=== PATIENT | male | born 1990 | race Caucasian/White ===

== ENCOUNTER 2019-06-02 10:47 | Emergency (ER) | payer OTHER ==
[~2019-06-02] VITALS: Ht 167.6 cm; Wt 59.0 kg
[2019-06-02 11:47] LABS: BASOPHILS 0.2 % (0.0-2.0); HEMATOCRIT 37.3 % (42.0-52.0); HEMOGLOBIN 12.4 gm/dL (14.0-18.0); LYMPHOCYTES 7.9 % (24.0-44.0); MCH 30.2 pg (26.0-34.0); MCHC 33.2 g/dL (28.0-37.0); MONOCYTES 8.9 % (1.0-8.0); PLATELET COUNT 221 thou/uL (150-400); RDW 13.3 % (10.5-14.5); WBC 14.4 thou/uL (4.0-11.0)
[2019-06-02 12:04] LABS: CALCIUM 9.2 mg/dL (8.5-10.1); CREATININE 0.9 mg/dL (0.7-1.3); POTASSIUM 3.4 mmol/L (3.5-5.1)
[2019-06-02 12:09] LABS: ALBUMIN 2.8 g/dL (3.4-5.0); TOTAL BILIRUBIN 0.9 mg/dL (<0.1-1.0); TOTAL PROTEIN 7.4 g/dL (6.4-8.2)
[2019-06-02] MEDS ORDERED: LEVAQUIN 750 M750 MG PO (15:36)
[2019-06-02 15:45] VITALS: BP 126/64
--- NOTE | 2019-06-03 07:44 | EKG ---
[place] [address] [facility] [address] [address] ELECTROCARDIOGRAM REPORT Name: JUMA MOE Room #: DEP [facility] [id number] Admission: 06/02/19 Attend Phys: Discharge: 06/02/19 Date of : [birth year] Report #: [id number] THIS REPORT FOR: //name// [facility] ED Test Date: 2019-06-02 Test Time: 12:10:11 Pat Name: JUMA MOE Department: Room: Gender: Director Personal: [facility] : 1990 Requested By: Shivam Costa Order Number: [id number] MD: Elmo Sheldon Measurements Intervals [place] Rate: 112 P: 59 TX: 177 QRS: 64 QRSD: 112 T: 15 QT: 331 QTc: 452 Interpretive Statements Sinus tachycardia RSR' in V1 or V2, probably normal variant No previous ECG available for comparison Electronically Signed On 06-03-2019 7:44:09 [employer] by Elom Sheldon [email or web address] <ELECTRONICALLY SIGNED> By: Elmo Sheldon MD, [facility] 06/03/19 0744 1210 1210 Elmo Sheldon MD, FACC /EPI
== END 2019-06-02 15:54 | disposition home or self-care (01) ==
LOC: ER 10:47
PROVIDERS: Emergency Medicine
DX: R05 Cough (principal); F17.210 Nicotine dependence, cigarettes, uncomplicated; Z87.01 Personal history of pneumonia (recurrent); Z88.1 Allergy status to other antibiotic agents

== ENCOUNTER 2021-01-30 07:47 | Inpatient (IN) | payer OTHER ==
[~2021-01-30] VITALS: Ht 167.6 cm; Wt 61.2 kg
--- NOTE | ~2021-01-30 | EMS ---
[facility] [address] [place] [address] EMS Patient Care Report Name: JUMA MOE Room #: 243-P ADM IN M.R.#: [id number] Admission: 01/30/21 Attend Phys: Abel Darden MD Discharge: Date of : [birth year] Report #: [id number] THIS REPORT FOR: //name// Report Transmitted: 02/09/2021 14:25 EMS Care Summary [place], [place]/[facility] Incident [id number] @ 01/30/2021 07:17 Incident Location [address] [place] [address] Patient JUMA MOE Male, 30 Years 1990 Patient Address [address] [place] [address] Patient History Pneumonia, Patient Allergies Amoxicillin, Patient Medications Other, Chief Complaint PNEUMONIA Disposition Transported No Lights/Soldier Dispatch Reason Sick Person Transported To [facility] Narrative DISPATCHED NON EMERGENCY ON A SICK. 30 Y/O MALE AMBULATING TOWARD AMBULANCE WITHOUT INCIDENT APPEARING IN NO IMMEDIATE DISTRESS. GCS 15 AND A/OX4. CONSENTS FOR [place] AND REQUESTS TRANSPORTATION TO [facility]. PT STATES HE WAS DIAGNOSED WITH PNEUMONIA. STATES THAT HE IS TAKING AN ANTIBIOTIC THAT HE [facility] [address] [place] [address] EMS Patient Care Report Name: JUMA MOE Room #: 243-P ADM IN Ray#: [id number] Admission: 01/30/21 Attend Phys: Abel Darden MD Discharge: Date of : 89 Report #: [id number] WAS PRESCRIBED BUT IS FEELING MORE WEAK. STATES HE IS HAVING SOME DIFFICULTY BREATHING. SPEAKING IN FULL SENTENCES. RESPIRATIONS APPEAR LABORED BUT NOT INCREASED. DENIES ANY OTHER MEDICAL COMPLAINTS. ASSISTED WITHOUT INCIDENT TO STRETCHER IN AMBULANCE. PLACED ON MONITOR AND V/S'S OBTAINED. H/R IS INCREASED AND OXYGEN SATURATION IS DECREASED. LUNG SOUNDS ARE CLEAR AND EQUAL BILATERALLY. PLACED ON OXYGEN AT 2 LPM. TRANSPORTED TO [facility]. REASSESSED ENROUTE. REMAINS GCS 15 AND ALERT. OXYGEN SATURATION IMPROVED. PT STATES HE IS FEELING BETTER. V/S'S MONITORED THROUGHOUT. REPORT CALLED TO HOSPITAL. MOVED WITHOUT INCIDENT TO ER HOSPITAL BED. PT CARE TRANSFERRED TO ED RN. Initial Vitals @07:33P: 110,SpO2: 97, @07:35P: 107,R: 18,BP: 129/80,Pain: 0/10,GCS: 15,Temp: 99.7F,SpO2: 96,Revised Trauma: 12,NM Suspected: false @07:28P: 112,R: 20,BP: 134/88,Pain: 0/10,GCS: 15,SpO2: 90,Revised Trauma: 12, Assessments @07:27MENTAL:Person Oriented,Time Oriented,Place Oriented,Event Oriented,SKIN:HEENT:Eyes: Left Pupil: 4-mm,Eyes: Right Pupil: 4-mm,Head/Face: No Abnormalities,Neck/Airway: No Abnormalities,LUNG SOUNDS:General: No Abnormalities,ABDOMEN:General: No Abnormalities,PELVIS//GI:EXTREMITIES:Capillary Refill: Right Upper: < 2 Sec,Capillary Refill: Right Lower: < 2 Sec,Capillary Refill: Left Lower: < 2 Sec,Capillary Refill: Left Upper: < 2 Sec,Left Arm: No Abnormalities,Right Arm: No Abnormalities,Left Leg: No Abnormalities,Right Leg: No Abnormalities,PULSE:Radial: 2+ Normal,NEURO:No Abnormalities,@07:35MENTAL:Place Oriented,Event Oriented,Time Oriented,Person Oriented,SKIN:HEENT:Head/Face: No Abnormalities,Neck/Airway: No Abnormalities,LUNG SOUNDS:General: No Abnormalities,ABDOMEN:General: No Abnormalities,PELVIS//GI:EXTREMITIES:Capillary Refill: Right Upper: < 2 Sec,Capillary Refill: Left Lower: < 2 Sec,Capillary Refill: Right Lower: < 2 Sec,Capillary Refill: Left Upper: < 2 Sec,Left Arm: No Abnormalities,Right Arm: No Abnormalities,Left Leg: No Abnormalities,Right Leg: No Abnormalities,PULSE:Radial: 2+ Normal,NEURO: Impression Shortness of breath Procedures @07:33Saline Lock 10cc (20 ga) Site: Forearm-LeftResponse: UnchangedSucceeded@07:303-Lead ECGResponse: UnchangedSucceeded@07:27ALS AssessmentResponse: UnchangedSucceeded@07:27StretcherResponse: Unchanged@07:29Oxygen FlowRate: 2 Device: Nasal Cannula (NC) Response: ImprovedSucceeded [facility] [address] [place] [address] EMS Patient Care Report Name: JUMA MOE Room #: 243-P ADM IN M.R.#: [id number] Admission: 01/30/21 Attend Phys: Abel Darden MD Discharge: Date of : 89 Report #: [id number] Timeline 07:15,Call Received 07:15,Dispatch Notified 07:17,Dispatched 07:18,En Route 07:25,On Scene 07:26,At Patient 07:27,ALS Assessment,Response: UnchangedSucceeded, 07:27,Stretcher,Response: Unchanged 07:28,BP: 134/88 M,PULSE: 112,RR: 20 R,SPO2: 90 Ox,ETCO2: ,BG: ,PAIN: 0,GCS: 15, 07:29,Oxygen FlowRate: 2 Device: Nasal Cannula (NC) Response: ImprovedSucceeded, 07:30,3-Lead ECG,Response: UnchangedSucceeded, 07:31,Depart Scene 07:33,Saline Lock 10cc 20 ga Site: Forearm-Left,Response: UnchangedSucceeded, 07:33,BP: / M,PULSE: 110,RR: R,SPO2: 97 Ox,ETCO2: ,BG: ,PAIN: ,GCS: , 07:35,BP: 129/80 M,PULSE: 107,RR: 18 R,SPO2: 96 Ox,ETCO2: ,BG: ,PAIN: 0,GCS: 15, 07:44,At Destination 08:03,Call Closed Disclaimer v1.1 Copyright 2020 [employer] This EMS Care Summary contains data elements from the applicable legal record (which may be displayed differently). It is designed to provide pertinent information for the following purposes: continuity of care, clinical quality, and state data reporting. The complete legal record is available to ED staff and administrators of the receiving hospital in [facility]'s Patient Tracker. All data is provided "as is."
[~2021-01-30 07:47] MED LIST: CEFDINIR300 MG PO; CEFPODOXIME PR200 M1 PO; LEVAQUIN 750 M750 MG PO; POTASSIUM20 PO; VENTOLIN HFA 1818 GM INH; ZPAK PO
[2021-01-30 07:48] VITALS: BP 114/73
[2021-01-30 08:56] LABS: ABSOLUTE NEUTROPHILS 7.7 thou/uL (1.4-8.2); BASOPHILS 0.5 % (0.0-2.0); EOSINOPHILS 0.1 % (0.0-3.0); HEMATOCRIT 24.9 % (42.0-52.0); HEMOGLOBIN 8.6 gm/dL (14.0-18.0); LYMPHOCYTES 12.3 % (24.0-44.0); MCH 30.2 pg (26.0-34.0); MCHC 34.5 g/dL (28.0-37.0); MCV 87.5 fL (80.0-100.0); MONOCYTES 8.8 % (1.0-8.0); PLATELET COUNT 211 thou/uL (150-400); POLYS 78.3 % (36.0-66.0); RBC 2.84 mil/uL (4.50-6.00); RDW 16.6 % (10.5-14.5); WBC 9.8 thou/uL (4.0-11.0)
[2021-01-30 09:03] LABS: CALCIUM 7.4 mg/dL (8.5-10.1); CREATININE 0.7 mg/dL (0.7-1.3); POTASSIUM 3.6 mmol/L (3.5-5.1)
[2021-01-30 09:09] LABS: ALBUMIN 1.1 g/dL (3.4-5.0); TOTAL BILIRUBIN 0.8 mg/dL (0.2-1.0); TOTAL PROTEIN 5.3 g/dL (6.4-8.2)
[2021-01-30 09:32] LABS: URINE BILIRUBIN 1+ (Negative); URINE BLOOD NEGATIVE (Negative); URINE CLARITY CLEAR; URINE GLUCOSE-RANDOM* NEGATIVE (Negative); URINE KETONES NEGATIVE (Negative); URINE LEUKOCYTES-REFLEX NEGATIVE (Negative); URINE NITRITE-REFLEX NEGATIVE (Negative); URINE PROTEIN (DIPSTICK) TRACE (Negative); URINE SPECIFIC GRAVITY 1.015 (1.005-1.035)
[2021-01-30 09:34] LABS: ICTOTEST (BILI CONFIRMATORY) Positive (Negative); URINE COLOR AMBER
[2021-01-30 10:37] LABS: AMP/METHAMP Negative (Negative); BARBITURATES Negative (Negative); BENZODIAZEPINES Negative (Negative); COCAINE Negative (Negative); METHADONE Negative (Negative); OPIATES Negative (Negative); PCP Negative (Negative)
[2021-01-30 10:58] VITALS: BP 121/70
--- NOTE | 2021-01-30 11:19 | NUR ---
TRIED TO CALL REPORT NO ANSWER
[2021-01-30 11:25] VITALS: BP 125/76
[2021-01-30 12:00] VITALS: BP 131/74
--- NOTE | 2021-01-30 14:26 | NUR ---
PT ARRIVED ROOM 453 AROUND 12:00 AT NOON FROM ER. REPORT GIVEN FROM ER NURSE ERIN. PATIENT IS A&O*4, 2L OXYGEN BY NASAL CANNULA. NS FLUID GOING AT 126ML/HR THROUGH LEFT FOREARM IV. EDUCATE PATIENT TO USE CALL LIGHT FOR ASSISTANCE BEFORE GET UP. REGULAR DIET. BG CHECKED. TELE IS ON. WILL KEEP MONITOR PATINET'S VS AND SAFETY.
[2021-01-30 15:12] VITALS: BP 133/72
[2021-01-30 20:53] VITALS: BP 127/78
--- NOTE | 2021-01-31 04:06 | NUR ---
ASSUMED CARE OF PT AT SHIFT CHANGE. PT IS AOX4 AND LETS NEEDS BE KNOWN. PT IS UP AD YAHAIRA. ASSESSMET CHARTED. PT RAN SR/ST ON TELE. IVF AND ABX TREATMENT CONTINUED. BREATHING TREATMENT STARTED. 2L O2 AMY NC CONTINUED. PT DENIED NAUSEA AND PAIN. PT SLEPT PART OF THE SHIFT. VSS AND NO S/S OF ACUTE DISTRESS. WILL CONTINUE TO MONITOR.
[2021-01-31 06:26] LABS: HEMATOCRIT 21.4 % (42.0-52.0); HEMOGLOBIN 7.2 gm/dL (14.0-18.0); MCH 29.9 pg (26.0-34.0); MCHC 33.6 g/dL (28.0-37.0); MCV 88.9 fL (80.0-100.0); RBC 2.4 mil/uL (4.50-6.00); RDW 16.7 % (10.5-14.5); WBC 7.5 thou/uL (4.0-11.0)
[2021-01-31 06:45] LABS: CALCIUM 7.3 mg/dL (8.5-10.1); CREATININE 0.7 mg/dL (0.7-1.3); POTASSIUM 3.7 mmol/L (3.5-5.1)
[2021-01-31 07:20] VITALS: BP 137/85
--- NOTE | 2021-01-31 14:10 | NUR ---
Received awake on bed. Due medications given as prescribed, able to swallow meds w/o difficulty. On O2 at 2lpm via nasal cannula; on breathing treatments. On telemetry; no complains and signs of chest pain, crushing sensation and heaviness. Assisted in ADLs. On regular diet, tolerating well; no nausea, no vomiting and no abdominal pain noted. On blood sugar monitoring, taken and recorded accordingly- verified with Dr Darden- may discontinue blood sugar monitoring. Still a/w stool sample for occult. Continent of bowel and bladder, able to use urinal and go to the toilet at times with standby assist. With NS at 126cc/hr, infusing well at L FA; With SL at R AC.
[2021-01-31 17:23] VITALS: BP 117/52
[2021-01-31 20:13] VITALS: BP 116/68
--- NOTE | 2021-02-01 03:45 | NUR ---
ASSUEMD CARE OF PT AT SHIFT CHANGE. PT IS SOX4 AND LETS NEEDS BE KNOWN. PT IS UP AD YAHAIRA. ASSESSMENT CHARTED. PT DENIED PAIN, NAUSEA OR SOA. 2L O2 VIA NC CONTINUED. IVF AND ABX TREATMENT CONTINUED. PT HAS A PRODUCTIVE COUGH. PT RAN SR/ST ON TELE. PT REMAINED AFEBRILE THIS SHIFT. PT SLEPT PART OF THE SHIFT. VSS AND NO S/S OF ACUTE DISTRESS. WILL CONTINUE TO MONITOR.
[2021-02-01 07:44] VITALS: BP 133/77
--- NOTE | 2021-02-01 14:21 | NUR ---
Received awake on bed. Due medications given as prescribed, able to swallow meds w/o difficulty. Vital signs stable. On telemetry; no complains and signs of chest pain, crushing sensation and heaviness. On O2 at 2lpm via nasal cannula; on regular breathing treatments. On regular diet- tolerating well; no nausea, no vomiting and no abdominal pain noted. Still a/w stool sample for occult- pt informed. Continent of bowel and bladder, able to use urinal and go to the toilet with standby assist. With SL at R AC; with NS at 126cc/hr, infusing well at L hand. Went down for CT scan this AM via wheelchair; back to room safely- a/w results. Pt seen and examined by Dr Null- for Dr Banuelos consult, answering service called- a/w rounds. Complained of pain, due PRN pain meds given as prescribed. To continue monitoring patient.
[2021-02-01 15:42] VITALS: BP 126/67
[2021-02-01 20:40] VITALS: BP 122/81
[2021-02-02] VITALS (9 sets, daily range): BP systolic 107–136; BP diastolic 65–81
[2021-02-02 05:35] LABS: HEMOGLOBIN 6.6 gm/dL (14.0-18.0)
[2021-02-02 05:38] LABS: MCH 30.2 pg (26.0-34.0); MCHC 33.9 g/dL (28.0-37.0); MCV 88.9 fL (80.0-100.0); RBC 2.2 mil/uL (4.50-6.00); RDW 16.8 % (10.5-14.5); WBC 9.4 thou/uL (4.0-11.0)
[2021-02-02 05:40] LABS: HEMATOCRIT 19.5 % (42.0-52.0)
[2021-02-02 05:51] LABS: CALCIUM 7.3 mg/dL (8.5-10.1); CREATININE 0.6 mg/dL (0.7-1.3); POTASSIUM 3.3 mmol/L (3.5-5.1)
--- NOTE | 2021-02-02 07:48 | NUR ---
ASSUMED CARE OF PT AT SHIFT CHANGE. PT IS AOX4 AND LETS NEEDS BEKNOWN. PT REPORTED SOME PAIN; PRNS PROVIDED. IVF AND ABX CONTINUED. 2L O2 VIA NC CONTINUED. ASSESSMENT CHARTED. CRITICAL HCT AND HGB CALLED; NO NEW ORDERS RECEIVED. ASSESSMENT CHARTED. PT SLEPT PART OF THE SHIFT. VSS AND NO S/S OF ACUTE DISTRESS. WILL CONTINUE TO MONITOR.
[2021-02-02 08:32] LABS: IgG 422
[2021-02-02 08:33] LABS: IgA 104
[2021-02-02 08:34] LABS: IgM 99
[2021-02-02 08:49] LABS: % SATURATION 16 % (20-39); IRON 20 ug/dL (65-175); TIBC 124 ug/dL (250-450)
[2021-02-02 09:17] LABS: FOLIC ACID 3.4 ng/mL (8.6-58.9)
--- NOTE | 2021-02-02 12:39 | NUR ---
PT IS A&O*4. 2L O2. TEMPTURE WAS 100F AND DECREASED TO 98.6F AFTER TYLENOL GIVEN. PATIENT COMPAIN NO PAIN. GIVE REPORT TO ICU NURSE JOSE ENRIQUE AT 12:25. WILL TRANSFER PT SAFETLY.
--- NOTE | 2021-02-02 14:56 | NUR ---
PT ADMITTED RELATED TO PNEUMONIA. CM REVIEWED CHART AND SPOKE WITH CARE TEAM. CM MET WITH PT AT BEDSIDE THIS DAY. PT APPEARED TO BE A&O X4. CM ROLE INTRODUCED. PT INDICATED HE RESIDES IN A HOUSE WITH HIS SPOUSE AND KIDS. PT INDICATED 4 STEPS TO ENTER AND NONE INSIDE. 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 PT INDICATED HIS MOTHER IN LAW WOULD BE A GOOD CONTACT FROM HIM AT . PT INDICATED HE IS PATIENT PAY AND HAS NO PCP. CM INDICATED THAT [facility] P[facility] CAN HE PROVIDED AND THAT [facility] WILL ASSESS PT FOR ELEGIBILITY FOR FINIANCIAL ASSISTANCE PROGRAMS. PT INDICATED NO O2 OR NEBS AT HOME HE STATED THAT HE HAS AN INHALER. PT WAS TRANSFERED TO ICU ROOM 238 THIS AFTERNOON. CM FOLLOWING REGARDING DC PLANNING.
[2021-02-02 18:06] LABS: HEPATITIS B SURFACE AG Negative (Negative); HEPATITIS C VIRUS AB <0.1 (0.0-0.9); HIV ANTIBODY Non Reactive (Non Reactive)
--- NOTE | 2021-02-02 18:32 | NUR ---
PT ARRIVED FROM [email or web address] ACCOMPANIED BY RN , BINDERY MACHINE OPERATOR AND PT FIANCE TO ICU ROOM 238. PT WAS TRANSFERRED TO POD ROOM 248 PT WAS GOING FOR SURGERY FOLLOWING DAY. PT ALERT AND ORIENTED X4 WITH UNDERLYING ANXIETY. PT ON 2L NC SPO2 ABOVE 95%. PT TACHYCARDIC. ONE UNIT PRBC TRANSFUSING. POTASSIUM AND MAGNESIUM BEING REPLACED. CONTINUE TO MONITOR.
[2021-02-02 21:24] LABS: HEMATOCRIT 22.1 % (42.0-52.0); HEMOGLOBIN 7.4 gm/dL (14.0-18.0); MCH 29.5 pg (26.0-34.0); MCHC 33.4 g/dL (28.0-37.0); MCV 88.3 fL (80.0-100.0); RBC 2.5 mil/uL (4.50-6.00); RDW 15.8 % (10.5-14.5); WBC 11.8 thou/uL (4.0-11.0)
[2021-02-02 21:32] LABS: CALCIUM 7.1 mg/dL (8.5-10.1); CREATININE 0.6 mg/dL (0.7-1.3); POTASSIUM 3.5 mmol/L (3.5-5.1)
[2021-02-02 22:55] LABS: ABSOLUTE RETIC COUNT 0.0853 10^6/uL; OBSERVED RETIC COUNT 3.34 % (0.6-2.6)
[2021-02-03] VITALS (22 sets, daily range): BP systolic 113–138; BP diastolic 58–102
[2021-02-03 05:33] LABS: ABSOLUTE NEUTROPHILS 9.4 thou/uL (1.4-8.2); BASOPHILS 0.4 % (0.0-2.0); EOSINOPHILS 0.2 % (0.0-3.0); HEMATOCRIT 22.3 % (42.0-52.0); HEMOGLOBIN 7.5 gm/dL (14.0-18.0); LYMPHOCYTES 9.3 % (24.0-44.0); MCH 29.6 pg (26.0-34.0); MCHC 33.5 g/dL (28.0-37.0); MCV 88.3 fL (80.0-100.0); MONOCYTES 4.8 % (1.0-8.0); PLATELET COUNT 203 thou/uL (150-400); POLYS 85.3 % (36.0-66.0); RBC 2.52 mil/uL (4.50-6.00); RDW 16.3 % (10.5-14.5); WBC 11.1 thou/uL (4.0-11.0)
[2021-02-03 05:46] LABS: ALBUMIN 0.9 g/dL (3.4-5.0); CALCIUM 7.4 mg/dL (8.5-10.1); CREATININE 0.5 mg/dL (0.7-1.3); POTASSIUM 3.5 mmol/L (3.5-5.1); TOTAL BILIRUBIN 0.5 mg/dL (0.2-1.0); TOTAL PROTEIN 4.7 g/dL (6.4-8.2)
[2021-02-03 06:06] LABS: APTT 34.5 Seconds (24.5-32.8); INR 1.05; PROTIME 11.4 Seconds (10.5-12.1)
[2021-02-03 12:12] LABS: % SATURATION 21 % (20-39); IRON 27 ug/dL (65-175); TIBC 130 ug/dL (250-450)
--- NOTE | 2021-02-03 13:45 | NUR ---
PATIENT COUGHING AND DEEP BREATHING WITH MINIMAL NURSING PROMPTING. IS COUGHING UP LARGE AMOUNTS OF SPUTUM. O2 SATS MAINTAINING ON 3L NC, HOWEVER, RR STILL VERY ELEVATED. PT'S FIANCE AT BEDSIDE AND UPDATED ON PT CONDITION. PT TO HAVE THORACOTOMY IN AM.
--- NOTE | 2021-02-03 14:00 | NUR ---
IV TEAM ATTEMPTED PICC LINE, UNABLE TO PLACE. 20G XL IV PLACED INSTEAD. PT TOLERATED WELL BUT DID NOT WISH TO HAVE ANOTHER ATTEMPT.
[2021-02-03 14:54] LABS: MAGNESIUM 1.8 mg/dL (1.8-2.4); POTASSIUM 3.5 mmol/L (3.5-5.1)
--- NOTE | 2021-02-03 15:00 | NUR ---
PATIENT AND AT BEDSIDE. PROGRESSING WELL TOWARDS GOAL OF DISCHARGE. AMBULATED WITH ASSISTANCE, HAS BEEN UP IN CHAIR MOST OF THE DAY. GALO/ARTERIAL LINE D/C THIS AM. HAS BEEN ABLE TO VOID. VSS.
--- NOTE | 2021-02-03 16:10 | NUR ---
PATIENT AND EDUCATED ON DISCHARGE INSTRUCTIONS. IVS D/C'D. ASSISTED PT WITH W/C TO CAR.
--- NOTE | 2021-02-03 16:57 | NUR ---
VAT CONSULTED FOR A PICC OR CL FOR THIS PT WHO WILL HAVE A VAT IN THE AM. ATTEMPTED TO THREAD A PICC ON THE RUE AND RIJ BUT NOT ABLE TO ADVANCE. A 20G 2.5 PIV PLACED IN HIS LOKESH WITH LABS DRAWN
[2021-02-04] VITALS (16 sets, daily range): BP systolic 99–136; BP diastolic 46–85
[2021-02-04 04:34] LABS: CALCIUM 7.5 mg/dL (8.5-10.1); CREATININE 0.6 mg/dL (0.7-1.3); POTASSIUM 3.8 mmol/L (3.5-5.1)
[2021-02-04 04:53] LABS: HEMATOCRIT 22.5 % (42.0-52.0); HEMOGLOBIN 7.6 gm/dL (14.0-18.0); MCH 30.2 pg (26.0-34.0); MCHC 33.8 g/dL (28.0-37.0); MCV 89.5 fL (80.0-100.0); PLATELET COUNT 203 thou/uL (150-400); RBC 2.52 mil/uL (4.50-6.00); RDW 16.5 % (10.5-14.5); WBC 9.4 thou/uL (4.0-11.0)
--- NOTE | 2021-02-04 06:19 | NUR ---
Pt has had uneventful night. Still remains very SOA with any movement, respiratory rate 30-43. O2 sat remains > 90% on 3 L canula. Pt has moments of anxiety which has been partially relieved with Ativan 1 mg IVP q 2-3 hours prn. Operative permit signed; pt voices understanding of procedure. States he is looking forward to feeling better.
--- NOTE | 2021-02-04 08:40 | NUR ---
ASSUMMED CARE OF THIS PATIENT AT 0700 FROM NIGHT NURSE, DAIN CARUSO. PATIENT NOTED TO HAVE RESP RATE IN THE 40 TO 50'S, AND HEART RATE UP TO 135 WITH AM XRAY OR ANY ACTIVITY. DR GRIFFIN AND DR ROBINS ARE ON THE UNIT AND AWARE OF THE SITUATION. REVIEWED XRAY. PATIENT TO OR AT 0835 VIA BED WITH O2 AT 6L/NC.
[2021-02-04 09:30] LABS: PLATELET ESTIMATE NORMAL
--- NOTE | 2021-02-04 11:20 | NUR ---
Chart review, discussed during los and unite rounds. He out of room for vats, he will come back on vent. Will cont following as needed for dc needs.
[2021-02-04 12:53] LABS: BE(vivo) -1.7 mmol/L (-2 to +3); HCO3 24.8 mmol/L (22.0-26.0); PCO2 52.2 mmHg (35.0-45.0); PO2 172.7 mmHg (80.0-100.0)
[2021-02-04 12:54] LABS: pH 7.295 (7.360-7.450)
--- NOTE | 2021-02-04 13:00 | NUR ---
PATIENT RETURNED DIRECTLY BACK FROM THE OR AT 1225, ACCOMPANIED BY THE OR TEAM. PLACED ON THE VENT AND MONITORS ATTACHED. MARK IN RT RADIAL ARTERY NOTED. PROPOFOL TITRATED FOR COMFORT AND HANDS NOTED TO MOVE TOWARDS ETT. WILL CONTINUE TO MONITOR. DR ROBINS AT BEDSIDE TO REVIEW PCXR.
--- NOTE | 2021-02-04 14:56 | NUR ---
ANOTHER ATTEMPT WAS MADE FOR THIS PATIENT BY THE VAT POST OP- WHILE PATIENT WAS INTUBATED AND SEDATED A PICC LINE WAS PLACED. THE LEFT UPPER ARM BRACHIAL VEIN WAS WIDLEY PATENT. A #5F TRIPLE LUMEN POWER PICC WAS PLACED AFTER A BEDSIDE TIMEOUT WAS COMPLETED. THE LINE WAS TRIMMED TO 45CM AND ADVANCED WITHOUT DIFFICULTY TO 2CM EXTERNAL. THE LINE WAS CONFIRMED USING 3CG AT 2 CM EXTERNAL. LINE WAS RELEASED FOR USE
[2021-02-04 16:04] LABS: HEMATOCRIT 21.8 % (42.0-52.0); HEMOGLOBIN 7.2 gm/dL (14.0-18.0); MCH 29.7 pg (26.0-34.0); MCHC 32.9 g/dL (28.0-37.0); MCV 90.4 fL (80.0-100.0); RBC 2.41 mil/uL (4.50-6.00); WBC 14.3 thou/uL (4.0-11.0)
--- NOTE | 2021-02-04 19:00 | NUR ---
PATIENT IS PROGRESSING SLOWLY TOWARDS OUTCOME GOALS HE REMAINS INTUBATED AND ON NEOSYNEPHRINE FOR BP AND PROPOFOL FOR VENT MANAGEMENT, LEFT UPPER ARM PICC INSERTED WITHOUT DIFF AND CVP IS 9-10. MAY GASTON, VISITED THIS EVENING AND UPDATED ON PATIENT'S CONDITION AND POC. QUESTIONS ANSWERED AND REASSURANCE GIVEN.
[2021-02-05 05:32] LABS: WBC 9.5 thou/uL (4.0-11.0)
[2021-02-05 05:37] LABS: MCH 30.6 pg (26.0-34.0); MCHC 34.1 g/dL (28.0-37.0); MCV 89.9 fL (80.0-100.0); RBC 1.94 mil/uL (4.50-6.00)
[2021-02-05 05:55] LABS: CALCIUM 7.3 mg/dL (8.5-10.1); CREATININE 0.4 mg/dL (0.7-1.3)
[2021-02-05 06:00] LABS: HEMATOCRIT 17.5 % (42.0-52.0); HEMOGLOBIN 5.9 gm/dL (14.0-18.0)
[2021-02-05 08:23] VITALS: BP 109/48
--- NOTE | 2021-02-05 09:00 | NUR ---
ASSUMMED CARE OF THIS PATIEN AT O700 FROM THE NIGHT NURSE SPENCER CARUSO. PATIENT REMAINS INTUBATED, AWAKE AND RESPONSIVE WITH FENTANYL AND PROPOFOL INFUSING. PROPOFOL WEANED FOR CPAP TRIAL. FIRST OF 2 UNITS OF BLOOD INFUSING. WILL CONTINUE TO MONITOR.
[2021-02-05 10:55] VITALS: BP 109/48; BP 125/60
--- NOTE | 2021-02-05 11:00 | NUR ---
UNIT OF BLOOD INFUSED. PATIENT PLACED ON CPAP TRIAL AT ASIYA 1000. REQUIRED FREQUENT ORAL AND ETT SUCTIONING FOR LARGE AMTS OF SECRETIONS. STRONG COUGH BUT ANXIOUS HE IS REQUESTING TO BE SUCTIONED EVERY 10 TO 15 MINUTES. CPAP TRIAL ABORTED AFTER ASIYA 45 MINUTES.
--- NOTE | 2021-02-05 11:38 | NUR ---
If unable to extubate with diet advance, recommend start vital AF 1.2 at 30ml/hr with goal rate of 55ml/hr
--- NOTE | 2021-02-05 12:00 | NUR ---
PRECEDEX ADDED FOR ANXIETY.
[2021-02-05 12:07] LABS: CD3 % 88.9 % (57.5-86.2); CD3 ABSOLUTE 1245 /uL (622-2402); CD4 % 57.6 % (30.8-58.5); CD4 ABSOLUTE 806 /uL (359-1519); CD4:CD8 1.88 (0.92-3.72); CD8 % 30.6 % (12.0-35.5); CD8 ABSOLUTE 428 /uL (109-897)
--- NOTE | 2021-02-05 12:26 | NUR ---
Chart review. discussed during los and unite rounds. On vent, getting blood r/t low hgb. Had vats yesterday. He awake, possible extubate. No anticipated dc over the weekend. Will cont following as needed for dc needs.
[2021-02-05 13:10] VITALS: BP 119/59; BP 126/65
--- NOTE | 2021-02-05 14:00 | NUR ---
LEFT THORACOTOMY WOUND PACKING CHANGED BY DR ROBINS AT THE BEDSIDE WITH PROPOFOL INCREASED FOR DRESSING REPACKING. PROPOFOL WEANED AND PATIENT PLACED ON CPAP TRIAL AT 1400
[2021-02-05 15:05] LABS: HCO3 24.4 mmol/L (22.0-26.0); PCO2 33.7 mmHg (35.0-45.0); PO2 119.4 mmHg (80.0-100.0); pH 7.478 (7.360-7.450); sO2 98.6 % (92.0-98.0)
--- NOTE | 2021-02-05 15:30 | NUR ---
ABG'S DRAWN AFTER 1 HR ON CPAP AND CALLED TO DR ROBINS. ORDERS RECEIVED AND PATIENT EXTUBATED TO 40% FACE SHIELD. TOLERATING WELL, COUGH AND DEEP BREATHING AND COACHED TO USE IS AND FLUTTER VALVE. WILL CONTINUE TO MONITOR.
[2021-02-05 16:24] VITALS: BP 119/59; BP 123/66; BP 126/65
--- NOTE | 2021-02-05 18:36 | NUR ---
PATIENT IS PROGRESSING TOWARDS OUTCOME GOAL HE IS EXTUBATED AND AFEBRILE. TAKING CLEAR LIQUIDS, AFTER BEDSIDE SWALLOW EVAL. SECOND UNIT OF PRBC'S INFUSED. IN AND SPOKE WITH DR GRIFFIN AND UNDATED ON POC. QUESTIONS ANSWERED AND REASSURANCE GIVEN
[2021-02-05 19:01] LABS: HEMATOCRIT 23.9 % (42.0-52.0)
[2021-02-05 19:03] LABS: HEMOGLOBIN 8.1 gm/dL (14.0-18.0)
[2021-02-06 05:21] LABS: CALCIUM 7.3 mg/dL (8.5-10.1); CREATININE 0.5 mg/dL (0.7-1.3); POTASSIUM 3.7 mmol/L (3.5-5.1)
[2021-02-06 05:23] LABS: HEMATOCRIT 25.1 % (42.0-52.0); HEMOGLOBIN 8.4 gm/dL (14.0-18.0); MCH 29.6 pg (26.0-34.0); MCHC 33.4 g/dL (28.0-37.0); MCV 88.7 fL (80.0-100.0); RBC 2.83 mil/uL (4.50-6.00); RDW 16.1 % (10.5-14.5); WBC 9.7 thou/uL (4.0-11.0)
[2021-02-06 08:07] LABS: IgG 427 mg/dL (603-1613)
--- NOTE | 2021-02-06 11:18 | NUR ---
PT WANTED THIS RN TO HAND HIM HIS PLASTIC BAG. PT SAID HE NEEDS TO SMELL THE LAVENDER PILLS IN THE BAG FOR HIS ANXIETY. THIS RN CHECKED THE BAG TO SEE WHAT THE PILLS LOOK LIKE. THE PILLS DID NOT HAVE ANY LABELS AND HE HAD A EMPTY 3 PACKET MEDICATION PACKAGE. SECURITY WAS CALLED. THE MEDICATIONS WERE SENT DOWN TO PHARMACY WITH SECURITY. 3 PACKS OF CIGARETTE WERE ALSO FOUND AND SEND DOWN TO SECURITY. PT WAS EDUCATED AND INFORMED THAT HE CANNOT HAVE OR CONSUME ANY OUT OF THE HOSPITAL MEDICATIONS OR HERBS OR OVER THE COUNTER PILLS WHILE HE IS IN THE HOSPITAL.
--- NOTE | 2021-02-06 11:29 | NUR ---
PT TRANSFERRED TO ROOM 243. REPORT WAS GIVEN TO ZULY HOLLIS. PT ALERT AND ORIENTED x4. PT ANXIOUS. PRECEDEX TURNED OFF PT WAS STILL ASKING FOR ANXIETY MEDICATIONS WHILE BEING ON THE PRECEDEX GTT. PT ON 5L NC, PT UPTO CHAIR THIS AM. IVF TURNED OFF. RIGHT RADIAL ART LINE OUT. LEST CHEST TUBE DRESSING CHANGED. BHAVESH MAS WAS NOTIFIED BY PT HIMSELF.
--- NOTE | 2021-02-06 18:11 | NUR ---
PT RESTING IN BED/CHAIR. UP TO WALK X1. CHEST TUBE IN PLACE WITH MINIMAL DRAINAGE INTO TUBE. DRESSINGS WERE SATURATED AND CHANGED. GALO DC. PIV X2 DC. PRECEDEX GTT INNIATED. OXYGEN HAS BEEN TITRATED TO 2L NC. PT CONTINUES TO BE TACHYPNEIC, HE HAS BEEN EDUCATED ON FATIGUE AND POSSIBILITY OF USING BIPAP AT NIGHT. PT PAIN NOT WELL CONTROLLED, CONTINUES TO HAVE ANXIETY. PT AND FIANCE HAVE BEEN THOUROUGHLY UPDATED AND EDUCATED ON PT CONDITION AND POC. PT SLOWLY PROGRESSING TOWARDS POC. ASSUMED CARE APPROX 1030 TODAY.
[2021-02-06 18:54] VITALS: BP 94/67
[2021-02-06 19:53] VITALS: BP 103/67
[2021-02-06 20:53] VITALS: BP 95/65
[2021-02-06 21:53] VITALS: BP 85/58
[2021-02-06 22:54] VITALS: BP 117/66
--- NOTE | 2021-02-06 23:48 | NUR ---
Pt highly anxious since beginning of shift, c/o of left back pain 04/09, asking for something for pain and/or anxiety every hour despite prn Fentanyl, Ativan, and Precedex given as ordered. Respiratory rate 40-52 since beginning of shift secondary to anxiety and pain. Pt intermittently drowsy, drops O2 sat to 88%; O2 increased to 5 L per canula.
[2021-02-06 23:53] VITALS: BP 123/63
[2021-02-07] VITALS (22 sets, daily range): BP systolic 102–129; BP diastolic 51–72
[2021-02-07 04:32] LABS: CALCIUM 7.4 mg/dL (8.5-10.1); CREATININE 0.5 mg/dL (0.7-1.3); POTASSIUM 3.1 mmol/L (3.5-5.1)
[2021-02-07 04:34] LABS: HEMATOCRIT 24.9 % (42.0-52.0); HEMOGLOBIN 8.3 gm/dL (14.0-18.0); MCH 29.7 pg (26.0-34.0); MCHC 33.3 g/dL (28.0-37.0); MCV 89.4 fL (80.0-100.0); RBC 2.78 mil/uL (4.50-6.00); RDW 16.6 % (10.5-14.5); WBC 8.1 thou/uL (4.0-11.0)
--- NOTE | 2021-02-07 11:28 | HC ---
[facility] [place] [address] CONSULTATION Name: JUMA MOE Room #: 243-P ADM IN M.R.#: [id number] Admission: 01/30/21 Attend Phys: Abel Darden MD Discharge: Date of : 89 Report #: [id number] THIS REPORT FOR: cc: FAM - No family physician/PCP FAM - No family physician/PCP Mykel Baneulos MD ~ DOC #: [id number] Mykel Banuelos MD DATE OF SERVICE: 02/02/2021 REFERRING PHYSICIAN: We are asked to see the patient by Dr. Null and Dr. Petit. HISTORY OF PRESENT ILLNESS: The patient is a 30-year-old with what appears to be a necrotizing pneumonia. The patient presents with sputum production and general malaise. The patient states he thought he may have had a fever at home, but never checked his temperature. The patient was admitted on 01/30/2021 with increased shortness of breath and weakness. Apparently, patient was seen on 01/25/2021 and diagnosed with pneumonia. It was recommended that he stay at the hospital at that time, but he elected to go home on antibiotics. Despite this treatment, he felt like he had gotten worse and returned for more definitive treatment. When the EMS was called room air sats were found to be in the low 90s. Since admission, the patient has had the CT scan that shows a smaller lenticular collection on the right and a larger complex basilar air-fluid collection along with the left lung pneumonia. The patient was also found to have significant anemia with today's hemoglobin of 6.6. White blood cell count not particularly elevated. Multiple serologies have been drawn and my understanding is that HIV is negative. The patient is also COVID negative. PAST MEDICAL HISTORY: The patient denies chronic disease. ALLERGIES: THE PATIENT STATES HE IS ALLERGIC TO AMOXICILLIN. MEDICATIONS: The patient was given (azithromycin) Z-IRVIN and Omnicef when seen in the Emergency Department earlier. SOCIAL HISTORY: The patient is a longtime smoker. 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 REVIEW OF SYSTEMS: GENERAL: The patient has sensation that he had been febrile at home, but had not taken his temperature. Also, reports generalized weakness and malaise. EYES: Denies vision change. HEENT: Denies headache, sinus problems, hearing problems. [facility] [address] [place] [address] CONSULTATION Name: JUMA MOE Room #: 243-P [facility] IN ..#: [id number] Admission: 01/30/21 Attend Phys: Abel Darden MD Discharge: Date of : 89 Report #: [id number] LUNGS: Complains of falls, sputum production and cough. CARDIAC: Denies angina. Denies palpitations. GASTROINTESTINAL: Denies nausea, vomiting, diarrhea or blood. GENITOURINARY: Denies urgency, frequency, blood. SKIN: Denies rash or infection. NEUROLOGIC: Denies motor or sensory problems. HEMATOLOGIC: Denies bruisability or bleeding. MUSCULOSKELETAL: Denies bone or joint pain. SKIN: Denies rash or infection. ENDOCRINE: Denies goiter, tremor. PHYSICAL EXAMINATION: GENERAL: The patient is sitting in bed, sallow complexion but animated. VITAL SIGNS: Temperature 37.0, heart rate 110, respiratory rate 20, blood pressure 129/81, O2 sat 96% on 2 liters. HEENT: No scleral icterus. No arcus. Oral exam reveals multiple caries. NECK: No cervical masses or bruits detected. CHEST: Reveals crackles bilaterally with decreased breath sounds at left base. HEART: Rhythm regular, tachycardic. No murmur. ABDOMEN: Soft. EXTREMITIES: No clubbing, cyanosis or edema. SKIN: No rash or infection. PSYCHIATRIC: Shows insight into problem and is a pleasant fellow. NEUROLOGIC: No motor or sensory dysfunction. MUSCULOSKELETAL: No bone or joint asymmetry or deformity. ASSESSMENT AND PLAN: The patient has what appears to be a complex empyema in the left base and a small lenticular collection in the right chest. I have recommended that we proceed to the operating room when it is safe to perform bronchoscopy and left video-assisted thoracoscopy with drainage was appropriate. If this is a more organized collection, then a thoracotomy with decortication may be necessary. Risks and details, options and alternatives, were discussed with the patient and may also be necessary later to have a catheter placed for the developing collection in the right chest. I have discussed the case with Dr. Petit who will organize a transfusion prior to surgery; it is not clear why the patient is so anemic. This clearly is a chronic issue and is either nutritional or related to some chronic occult blood loss or myelophthisic. In any event, multiple medical tests are being done to seek a systemic answer for this problem in order to help prepare for surgery we have taken the liberty of scheduling surgery for morning so that we can have time to assess the data as it returns. The patient understands all of this and agrees. Thank you for the consult. Mykel Banuelos MD [address] [address] CONSULTATION Name: JUMA MOE Room #: 243-P ADM IN M.R.#: [id number] Admission: 01/30/21 Attend Phys: Abel Darden MD Discharge: Date of : 89 Report #: [id number] KRUNAL/ROBERT <ELECTRONICALLY SIGNED> By: Mykel Banuelos MD 02/07/21 1128 1406 30 Mykel Banuelos MD /nt
--- NOTE | 2021-02-07 11:28 | O ---
[facility] [place] [address] OPERATIVE REPORT Name: JUMA MOE Room #: 243-P ADM IN M.R.#: [id number] Admission: 01/30/21 Attend Phys: Abel Darden MD Discharge: Date of : 89 Report #: [id number] THIS REPORT FOR: cc: FAM - No family physician/PCP FAM - No family physician/PCP Mykel Banuelos MD ~ DOC #: [id number] Mykel Banuelos MD DATE OF SERVICE: 02/04/2021 PREOPERATIVE DIAGNOSIS: Necrotizing pneumonia with possible empyema. POSTOPERATIVE DIAGNOSIS: Necrotizing pneumonia with possible empyema. OPERATION: Bronchoscopy, left video-assisted thoracoscopy, left thoracotomy with drainage of lung abscess. SURGEON: Mykel Banuelos MD. STAFF PHYSICAL THERAPY ASSISTANT: QUIQUE Morejon. ANESTHESIA: General. INDICATIONS: The patient is a 30-year-old with bilateral pneumonia. CT scan demonstrates a complex mass in the base of the left chest that is suspicious for necrotizing pneumonia with possible empyema. FINDINGS AND TECHNIQUE: After general anesthesia was established, flexible diagnostic bronchoscopy was performed. No specific endobronchial lesions were noted, but there was edema in the left lower lobe segmental bronchi, particularly in the superior segmental bronchus and there was pus or purulent sputum from those areas. After cleansing as much of the bronchial tree as we could and collecting samples for culture, a bronchial gerard was placed and its position checked with bronchoscopic guidance. The patient was positioned with left side up. The patient appeared to tolerate single-lung anesthesia. Exposure was made through typical video-assisted thoracoscopy ports. Through the lowest port and the anterior port, we were able to enter relatively free pleural space. The lung itself appeared edematous through the most posterior port, however, I could not enter the pleural space. The tract took us into necrotic lung and purulent collection. This was clearly a separate compartment from the rest of the pleural space. Rather than taking down this adhesed lung, I made a decision to perform a local [facility] [address] [place] [address] OPERATIVE REPORT Name: JUMA MOE Room #: [facility] IN .R.#: [id number] Admission: 01/30/21 Attend Phys: Abel Darden MD Discharge: Date of : 89 Report #: [id number] drainage procedure over the posterior port. First, however, chest tube was brought through the lowest port and it was secured in position and the anterior port was closed. Incision for the most posterior port was expanded to perform a posterior thoracotomy, chest was entered through this space and we entered into necrotic lung. In this way, we were able to drain lung abscess. Cultures were taken and sent for aerobic, anaerobic, fungal and AFB cultures. I explored the space as much as possible, but did not want to incur any hemorrhage. The area of the abscess was drained to the best of our ability at that time and then when this was completed, a Kerlix was soaked with Dakin solution and left in place as a wound packing. Overall, the patient tolerated this procedure nicely despite his chronically and acutely ill condition. The patient was taken back to the intensive care unit on the ventilator in satisfactory condition. All counts were reported as correct with the note that wound packing of Kerlix was left in place. Mykel Banuelos MD JF/AVRIL <ELECTRONICALLY SIGNED> By: Mykel Banuelos MD 02/07/21 1128 1245 1334 Mykel Banuelos MD /nt
--- NOTE | 2021-02-07 11:58 | NUR ---
ASSUMED CARE OF PT AT 0700 DR. ROBINS AT BEDSIDE AT 1115 AT REMOVED THE LEFT CHEST TUBE DR. HOWELL AT BEDSIDE AT 1155, SHE ORDERED ANXIETY MEDICATION AND WANTS HIM OFF PRECEDEX. IF HE IS STABLE AND NOT ANXIOUS ONCE OFF THE PRECEDEX THEN HE CAN MOVE TO CCU.
[2021-02-08] VITALS (14 sets, daily range): BP systolic 109–134; BP diastolic 61–86
[2021-02-08 05:23] LABS: CALCIUM 7.3 mg/dL (8.5-10.1); CREATININE 0.5 mg/dL (0.7-1.3); MAGNESIUM 1.7 mg/dL (1.8-2.4); PHOSPHORUS 2.5 mg/dL (2.6-4.7); POTASSIUM 3.3 mmol/L (3.5-5.1)
[2021-02-08 05:50] LABS: ABSOLUTE NEUTROPHILS 5.2 thou/uL (1.4-8.2); BASOPHILS 0.6 % (0.0-2.0); EOSINOPHILS 0.7 % (0.0-3.0); HEMATOCRIT 23.2 % (42.0-52.0); HEMOGLOBIN 7.8 gm/dL (14.0-18.0); LYMPHOCYTES 17.6 % (24.0-44.0); MCH 30.3 pg (26.0-34.0); MCHC 33.8 g/dL (28.0-37.0); MCV 89.7 fL (80.0-100.0); MONOCYTES 7.2 % (1.0-8.0); PLATELET COUNT 140 thou/uL (150-400); POLYS 73.9 % (36.0-66.0); RBC 2.58 mil/uL (4.50-6.00); RDW 16.5 % (10.5-14.5); WBC 7.1 thou/uL (4.0-11.0)
--- NOTE | 2021-02-08 06:00 | NUR ---
PT AWAKE AND ALERT. COOPERATIVE. REQUESTED FREQ PAIN MED TONIGHT. LEFT CHEST DRESSING OZZING SOME. EXCELLENT COUGH EFFORT. VOIDED 1500 CC THIS SHIFT. PROGRESSING TOWARD GOALS Can transfer to ccu today. no beds open at present. will cont to monitor
--- NOTE | 2021-02-08 07:50 | EKG ---
[address] [address] ELECTROCARDIOGRAM REPORT Name: JUMA MOE Room #: 243-P ADM IN M.R.#: [id number] Admission: 01/30/21 Attend Phys: Abel Darden MD Discharge: Date of : 92 Report #: [id number] [facility] Test Date: 2021-02-07 Test Time: 12:04:22 Pat Name: JUMA MOE Department: Room: 243 P Gender: M Director Of Maternity Services: VIRGILIO : 1990 Requested By: Dottie Bowman Order Number: [id number] MD: Nam Mae Measurements Intervals [place] Rate: 73 P: 33 [place]: 160 QRS: 40 QRSD: 93 T: 25 QT: 391 QTc: 431 Interpretive Statements Sinus rhythm Compared to ECG 01/25/2021 10:29:31 Sinus tachycardia no longer present Intraventricular conduction delay no longer present T-wave abnormality no longer present Electronically Signed On 02-08-2021 7:49:54 CDT by Nam Mae [email or web address] <ELECTRONICALLY SIGNED> By: Nam Mae MD, [facility] 02/08/21 0749 1204 1204 Nam Mae MD, [facility] /EPI
--- NOTE | 2021-02-08 11:10 | NUR ---
CT surgery team at bedside changing dressing. Fentanyl given before procedure, VSS, tolerated dressing change.
--- NOTE | 2021-02-08 13:10 | NUR ---
Pt very distressed about home situation re: his children. Pt states if he doesn't get out soon or find someone to watch his children, his fiancee will lose her job and will give the children to [employer]. Paged Dr. Petit to inquire about outpatient ABX via PICC.
--- NOTE | 2021-02-08 13:35 | NUR ---
Pt juan pablo at bedside - stated she was able to find someone to watch the children while she came to visit.
--- NOTE | 2021-02-08 15:46 | NUR ---
Pt requesting his "tea pills" that were confiscated earlier this admission. RN advised pt they were securely being held in pharmacy for when he gets discharged. RN educated pt on herbal supplements and OTC meds that while legal, are not always in the best interest of the pt - especially with multiple infections and puts them at risk for organ damage. Pt questioned RN on interactions with medications - RN advised pt to cease all OTC herbal supplements and cigarette use once discharged. Pt stated he understood, janiee at bedside agreed and encouraged pt to stop using the Kraton pills as well. Will follow up any further concerns.
--- NOTE | 2021-02-08 16:38 | NUR ---
Patient remains in ICU follow VAT's procedure with extensive bilateral pneumonia, with cavitary changes, mild bilateral effusions, Streptococcus pneumonia antigen positive. Chest tube removed by CV SWITCH FOREMAN today. Patient is listed as stable with tachypnea , respiratory rate in the 30s, remains weak, tolerating oral intake. Chest x-ray stable post Cx tube removal. Oxygen needs about the same, currently on 5 L of O2. Met with patient [id number]. Clarified next of kin contact. Patient reports Summer at [phone] (note patient currently has the phone) is his current . Jigna at [phone] as listed on the face sheet is his current Mother in Law and Mother to Summer. At present his children are being cared for by his ex- and her mother. Patient has been employed but unsure if he has his current job as he has only been with the [employer] for 3 months. 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 The patient has not spoken to his employer since. The patient is requesting discharge to outpatient as soon as possible to help with care for his children. Explained that patient needs to listen to his medical team to determine his ability to leave and function in that capacity as well. CM will work to seek services for help in the home upon discharge. Patient is hoping to discharge soon to an outpatient setting. CM will continue to follow for discharge needs.
--- NOTE | 2021-02-08 17:09 | NUR ---
Pt had witnessed/assisted fall/sit around 1000. Ambulating with yellow socks, gait belt, and RN assist pt sat aiming for commode before RN instruction and sat on floor instead. Pt is A/O x4, stated he "has to go right now", and otherwise steady when ambulating. Pt reports no injuries and none were witnessed, MD aware.
--- NOTE | 2021-02-08 18:19 | NUR ---
Per pt janie Robles and are allowed to have info, but "if anyone named Phoebe or Chuck calls she is banned". RN told pt she would note in chart. Margaret currently listed as primary contact.
[2021-02-09] VITALS (8 sets, daily range): BP systolic 102–141; BP diastolic 58–93
[2021-02-09 01:06] LABS: TETANUS ANTIBODY 0.13 IU/mL (<0.10)
[2021-02-09 05:43] LABS: HEMOGLOBIN 8.1 gm/dL (14.0-18.0); MCH 30.3 pg (26.0-34.0); MCHC 33.8 g/dL (28.0-37.0); MCV 89.6 fL (80.0-100.0); RBC 2.67 mil/uL (4.50-6.00); RDW 16.6 % (10.5-14.5); WBC 6.2 thou/uL (4.0-11.0)
--- NOTE | 2021-02-09 06:00 | NUR ---
PT AWAKE ALERT. VSS SINUS RHYTHM TO ST AFEBRILE. LEFT CHEST DRESSING DRY AND INTACT. EXCELLENT UO 1800 CC. CONT TO REQUEST PAIN AND ANXIETY MED FREQ. CAN TX TO CCU. NO BEDS AVAILABLE AT THIS TIME. PROGRESSING TOWARD GOALS
[2021-02-09 06:09] LABS: CALCIUM 7.6 mg/dL (8.5-10.1); CREATININE 0.4 mg/dL (0.7-1.3); POTASSIUM 3.1 mmol/L (3.5-5.1)
--- NOTE | 2021-02-09 11:39 | NUR ---
Reviewed case in 02-09-21 LOS and plan for continued ICU to possible step down care. CM explained to MD the patients desire to discharge home sooner than later. Attending MD to meet with patient and review current progress to discharge goals. CM will continue to follow.
--- NOTE | 2021-02-09 12:26 | NUR ---
PT REFUSING FOR HIS BED TO BE MADE. PHYSICAL THERAPIST ELOINA VERBALIZING CONCERN TO ZULY TORREZ THAT THE PATIENT SEEM LOOPY AND NOT WANTING TO WORK WITH PT THIS AFTERNOON. PT WANTED THE RN TO HAND HIM HIS PILLOW CASE. PT GAVE PERMISSION TO ZULY TORREZ TO LOOK INSIDE THE PILLOW CASE AND ZULY TORREZ FOUND 3 PACK OPITIMIZED PLANT MEDIATED PILLS. PT VERBALIZED HE TOOK TWO PILLS ALREADY. THIS SECURITY SCREENER TOOK THE PILL TO PHARMACY.PT BELONGINGS WERE STORED IN THE ICU STORE ROOM. PT WAS EDUCATED THAT IT IS NEITHER ALLOWED TO TAKE NOR HAVE FAMILY BRING ANY MEDICATIONS IN THE HOSPITAL. NOVELTY CHAIN MAKER VANESA HERNANDEZ WAS NOTIFIED ABOUT THIS INCIDENT. ZULY TORREZ NOTIFIED QUIQUE CANALES. THIS SECURITY SCREENER LEFT A MESSAGE TO MANUFACTURING MAINTENANCE TECHNICIAN MARCIN WHEATLEY.
[2021-02-09] MEDS ORDERED: [UNRECOGNIZED DRUG - OTHER] (14:25)
[2021-02-09 15:06] LABS: AMP/METHAMP Negative (Negative); BARBITURATES Negative (Negative); BENZODIAZEPINES Negative (Negative); COCAINE Negative (Negative); METHADONE Negative (Negative); OPIATES Negative (Negative); PCP Negative (Negative)
--- NOTE | 2021-02-09 17:56 | NUR ---
PT SAT UP IN CHAIR MOST OF THE DAY. FOUND WITH CBG TODAY. UNCLEAR IF FAMILY IS BRINGING IT TO HIM. DRUG SCREEN NEGATIVE. VSS EXCEPT TACHYCARDIA AT TIMES.
--- NOTE | 2021-02-09 18:06 | NUR ---
PT BHAVESH MERCEDES WAS INFORMED ABOUT THE INCIDENT OF FINDING PILLS TODAY. PT BHAVESH WAS INFORMED THAT IF THE RN OR OTHER STAFF MEMBERS FIND ANY MORE PILLS IN THE PATIENT ROOM THEN THE FAMILY MEMBERS WOULD NOT GET ANY VISITATION HOURS WITH THE PATIENT. DEMETRIA OSPINA VERBALIZED UNDERSTANDING ABOUT THE SITUATION AND DENIES BRINING ANY MEDS TO THE PATIENT.
--- NOTE | 2021-02-09 18:23 | NUR ---
PT REMAINS SEDATED ON VENT. VSS. TOLORATING TUBE FEEDING SMALL CPAP TRIAL TODAY BUT PT GOT TOO ANXIOUS.
--- NOTE | 2021-02-09 22:15 | NUR ---
Report gave to Coby Graves RN.
--- NOTE | 2021-02-09 22:40 | NUR ---
Pt left ICU with stable conditions. He is accomponied to room 207 by me. All belonging are sent to his room. His is awared of he being transfered.
--- NOTE | 2021-02-09 22:57 | NUR ---
PATIENTS CARE WAS ASSUMED AFER A TRANSFER FRO ICU. REPORT WAS GIVEN ,MEDS WERE CONTINUED. PATIENT REQUESTED PAIN MEDS AND SOMETHING FOR ANXIETY.
[2021-02-10 04:42] LABS: HEMATOCRIT 23.9 % (42.0-52.0); MCH 30.2 pg (26.0-34.0); MCHC 33.6 g/dL (28.0-37.0); MCV 89.8 fL (80.0-100.0); RBC 2.66 mil/uL (4.50-6.00); RDW 16.6 % (10.5-14.5); WBC 5.3 thou/uL (4.0-11.0)
[2021-02-10 04:46] LABS: CALCIUM 7.5 mg/dL (8.5-10.1); CREATININE 0.4 mg/dL (0.7-1.3); POTASSIUM 3.4 mmol/L (3.5-5.1)
[2021-02-10 05:00] VITALS: BP 137/91
--- NOTE | 2021-02-10 05:28 | NUR ---
PATIENTS CARES WERE ASSUMED AFTER A TRANSFER FROM ICU. PATIENTS MEDS WERE PASSED AFTER AN ASSESSMENT. PAIN MEDS AND ANXIETY MEDS WERE GIVEN. PATIENT DID FALL TO SLEEP AFTER. WILL CONTINUE TO DO ROUNDS. THE BED IS IN A LOW AND LOCKED POSITION.
--- NOTE | 2021-02-10 07:19 | HC ---
[facility] [place] [address] CONSULTATION Name: JUMA MOE Room #: 207-P ADM IN M.R.#: [id number] Admission: 01/30/21 Attend Phys: Abel Darden MD Discharge: Date of : 89 Report #: [id number] THIS REPORT FOR: cc: FAM - No family physician/PCP FAM - No family physician/PCP Tyron Banks MD ~ DOC #: [id number] cc: Abel Darden MD, Mykel Banuelos MD, QUIQUE Rankin (Jeremy), Ra Petit MD, MD Tyron Marr MD DATE OF SERVICE: 02/04/2021 REASON FOR CONSULTATION: Iron-deficiency anemia. HISTORY OF PRESENT ILLNESS: The patient is a very pleasant 30-year-old male from the [facility], who was admitted for what appears to be Streptococcal pneumonia with extensive involvement of most of the left, but also the right side. On admission, his hemoglobin was 8.6, dropped as low as 6.6; noted in December of 2020 was 10.5; noted in 05/2019, it had been 12.4. At the same time on admission when his hemoglobin was 8.6, the white count was 9.8, RDW 16.6, platelets 211. Normal differential. On admission in December, his AST was 91, it is now resolved. Total bilirubin 0.8, SGPT 38, creatinine was 0.7, albumin 1.1. Note that in December of 2020, it was 1.3, noted in 05/2019 it was 2.8. The patient reports not eating any red meat, has not been told he has been iron-deficient or anemic before. With regard to infections, he reports about 3 or 4 prior pneumonias. He reports several occasions of antibiotic usage when he was a young child under age 12, but none recently. Does not have recurrent sinus infections, does not have recurrent skin infections, does have poor dentition. Lives in a house with his , 2 children, age 2 and 7, I believe his mother and stepfather. None of them have unusual illnesses. There does not appear to be any family history of unusual infections. Nothing that would suggest cystic fibrosis in that degree. The patient is a smoker since about age 17 if not younger. The patient at this time has a cough. Has low-grade fever. Has some chest discomfort, no bowel changes. No blood in his urine or stool. They have not been black and tarry, is my understanding. He is very malnourished, as I mentioned, his albumin is extremely low on admit of 1.1. PAST MEDICAL HISTORY: Notable for the previous pneumonias. The recent pneumonia with some cavitation and probable empyema with plans for decortication perhaps later today after bronchoscopy. He is also a tobacco user. PHYSICAL EXAMINATION: GENERAL: The patient appears his stated age. He is a thin white male. Height is 5 feet 6 inches, 167.6 pounds. Weight 157 pounds noted on admit, was 138, [address] [address] CONSULTATION Name: JUMA MOE Room #: 207-P ADM IN .R.#: [id number] Admission: 01/30/21 Attend Phys: Abel Darden MD Discharge: Date of : 89 Report #: [id number] which is currently 71.2 kilograms, it was 62.6. VITAL SIGNS: He is afebrile, currently 98.1, blood pressure 127/73, respirations currently 46, pulse 112. HEENT: Face is symmetric. Poor dentition. LYMPHATICS: No enlarged lymph nodes in the supraclavicular, cervical, axillary region. ABDOMEN: Without masses. CHEST: Has rhonchi, left more than right. EXTREMITIES: Without clubbing, cyanosis. There is some edema. ASSESSMENT AND PLAN: 1. Iron-deficiency anemia, probably due to lack of red meat in his diet and poor diet. Noted his albumin was 1.1 on admission. Would suggest iron supplementation if acceptable to others. No evidence of bleeding or hemolysis at this time. Transfuse to keep hemoglobin above 7. 2. Severe protein-calorie malnutrition with albumin of 1.1 on admission. We will need to supplement as able to help patient heal better. 3. Probable Strep pneumonia antigen positive with infections, both left and right. No plans for bronchoscopy and probable decortication later today. 4. Poor dentition. We will need outpatient management. 5. Tobaccoism. Encouraged cessation. We will follow with you. MD ATTILA Alas/THOMAS/JHOAN <ELECTRONICALLY SIGNED> By: Tyron Banks MD 02/10/21 0719 0814 2104 Tyron Banks MD /nt
[2021-02-10 08:06] VITALS: BP 127/90
[2021-02-10 12:16] VITALS: BP 122/71
[2021-02-10 16:08] VITALS: BP 122/67
--- NOTE | 2021-02-10 17:24 | NUR ---
ASSUMED CARE SHIFT CHANGE. ASSESSMENTS CHARTED.MEDS GIVEN. VSS. C/O PAIN- MANAGED WITH PO IV PAIN MEDS. O2 SATS WNL ROOM AIR. CTS PLACED WOUND VAC ON PT THIS SHIFT, DRESSINGS CHANGED. WOUND VAC FUNCTIONING. PT REFUSED OT UNTIL TOMORROW. PT C/O ANXIETY, ANXIETY MEDS GIVEN CHARTED. UOP ADEQUATE. DENYING NEEDS CURRENTLY. CONT POC. WILL PASS ON REPORT TO ROBLES CARUSO.
[2021-02-10 20:00] VITALS: BP 125/75
[2021-02-11 04:45] VITALS: BP 125/83
--- NOTE | 2021-02-11 06:00 | NUR ---
PATIENTS CARES WERE ASSUMED AT SHIFT [facility]. PATIENT WAS ASSESSED AND MED WERE PASSED. PATIENT WS ROUNDED ON . I believed patient was ROUNDED PATIENT PUT OUT APPROX 150 FROM THE WOUND VAC. SUPPLIES IN THE ROOM TO CHANGE OUT THE WOUND VACS CANISTER. THE BED IS IN A LOW AND LOCKED POSITION
--- NOTE | 2021-02-11 06:00 | NUR ---
PATIENTS CARES WERE ASSUMED AT SHIFT [facility]GAN
[2021-02-11 09:24] VITALS: BP 131/77
[2021-02-11 12:14] VITALS: BP 111/75
--- NOTE | 2021-02-11 15:20 | NUR ---
Postdoctoral Scholar spoke with Murray (CTS NEWS PRODUCTION ASSISTANT) and he has made referral to [facility] for ana wound vac at [place]. He is hoping to replace vac dressing tomorrow and if the pt can be switched to po atb, then he can dc home with the wound vac. Postdoctoral Scholar spoke with Dany from [facility] and he has been working with Joseph garde manger for documentation. Script need on the [facility] Auth Form. A copy was placed on the front of the chart and Murray will sign it in the morning. Possible dc home soon. Cm to f/u with [facility] in the am for ana approval and delievery.
[2021-02-11 15:29] VITALS: BP 122/85
--- NOTE | 2021-02-11 17:39 | NUR ---
PT UP TO CHAIR TODAY AND CONTINUE TO MEDICATE FOR PAIN. PT TOLERATING PO WELL. WOUND VAC REMIANS IN PLACE. WILL CONTINUE TO ASSESS.
[2021-02-11 19:56] VITALS: BP 157/80
[2021-02-12 04:14] VITALS: BP 134/85
--- NOTE | 2021-02-12 04:58 | NUR ---
SLEPT PART OF SHIFT. TURNS SELF AND SITS ON SIDE OF BED TO VOID. WORKING ON GOALS AND PLAN OF CARE FOR NOC. PAIN MEDICATION AND ATIVAN GIVEN NEEDED WITH NOTED RELIEF. PROGRESSING TOWARDS DISCHARGE HOME WITH HOME HEALTH. CONTINUE TO ASSES.
[2021-02-12 06:07] LABS: HEMOGLOBIN 9.8 gm/dL (14.0-18.0); MCH 30.5 pg (26.0-34.0); MCHC 33.7 g/dL (28.0-37.0); MCV 90.4 fL (80.0-100.0); RBC 3.21 mil/uL (4.50-6.00); RDW 16.7 % (10.5-14.5); WBC 6.2 thou/uL (4.0-11.0)
[2021-02-12 06:16] LABS: CALCIUM 8.3 mg/dL (8.5-10.1); CREATININE 0.5 mg/dL (0.7-1.3); POTASSIUM 3.8 mmol/L (3.5-5.1)
[2021-02-12 07:56] VITALS: BP 114/74
--- NOTE | 2021-02-12 11:31 | NUR ---
pt off unit to ir.
[2021-02-12 12:25] VITALS: BP 125/72
--- NOTE | 2021-02-12 12:28 | NUR ---
PT RETURN FROM IR.
[2021-02-12 14:12] VITALS: BP 125/72
--- NOTE | 2021-02-12 14:25 | NUR ---
Outpt infusion has been approved for ana coverage per Dr. Darden. Referral faxed to ZULY Benjamin in the outpt infusion center. Pt to go to the ER on the weekends at 8:30am and to the infusion suite Monday to Monday at 2pm. His wound vac per [facility] has been approved thru their ana program and was delievered this afternoon. CTS here and placing the home vac. Supplies given to Cassidy in outpt infusion to have for next week's MWF dsg changes. Awaiting any final orders from ID for labs/line care. Pt had single lumen picc placed earlier today. Dc anticipated this evening once ID has seen him. Start of outpt care tomorrow as noted above. Detailed instructions provided in the pt's dc paperwork.
[2021-02-12] MEDS ORDERED: BUSPIRONE HCL5 MG PO (14:52)
[2021-02-12] MEDS ORDERED: FERREX 150 PLU1 EAC1 PO (14:52)
[2021-02-12] MEDS ORDERED: TRAMADOL 50 MG50 MG PO (14:52)
[2021-02-12] MEDS ORDERED: FOLIC ACID1 MG PO (14:53)
[2021-02-12] MEDS ORDERED: PROAIR HFA8.5 GM INH (14:54)
[2021-02-12] MEDS ORDERED: ROCEPHIN 11 GM/1001 IV (14:54)
[2021-02-12 15:03] VITALS: BP 107/45
== END 2021-02-12 15:43 | disposition home or self-care (01) | DRG 871 ==
LOC: ER 07:47 → EROBS 09:58 → 4W 11:33 → ICU 02-02 14:01 → 2N 02-09 22:47
PROVIDERS: Emergency Medicine; Internal Medicine; Internal Medicine Hematology & Oncology; Internal Medicine Pulmonary Disease; Nurse Practitioner Family; Physician Assistant; Specialist; Surgery Vascular Surgery; ADMIT Hospitalist; ATTEND Hospitalist
PROC: 0BJ08ZZ Inspection of Tracheobronchial Tree, Via Natural or Artificial Opening Endoscopic (ICD-10-PCS; principal; 2021-02-04)
PROC: 0BH17EZ Insertion of Endotracheal Airway into Trachea, Via Natural or Artificial Opening (ICD-10-PCS; principal; 2021-02-04)
PROC: 5A1945Z Respiratory Ventilation, 24-96 Consecutive Hours (ICD-10-PCS; principal; 2021-02-04)
PROC: 0W9B0ZZ Drainage of Left Pleural Cavity, Open Approach (ICD-10-PCS; principal; 2021-02-04)
PROC: 5A0945A Assistance with Respiratory Ventilation, 24-96 Consecutive Hours, High Flow/Velocity Cannula (ICD-10-PCS; 2021-02-05)
PROC: B5181ZA Fluoroscopy of Superior Vena Cava using Low Osmolar Contrast, Guidance (ICD-10-PCS; 2021-02-12)
PROC: 02PYX3Z Removal of Infusion Device from Great Vessel, External Approach (ICD-10-PCS; 2021-02-12)
PROC: 02HV33Z Insertion of Infusion Device into Superior Vena Cava, Percutaneous Approach (ICD-10-PCS; 2021-02-12)
DX: A41.9 Sepsis, unspecified organism (principal); E43 Unspecified severe protein-calorie malnutrition; J96.01 Acute respiratory failure with hypoxia; J85.1 Abscess of lung with pneumonia; A15.0 Tuberculosis of lung; T79.7XXA Traumatic subcutaneous emphysema, initial encounter; D50.9 Iron deficiency anemia, unspecified; F17.210 Nicotine dependence, cigarettes, uncomplicated; K02.9 Dental caries, unspecified; B95.3 Streptococcus pneumoniae as the cause of diseases classified elsewhere; E53.8 Deficiency of other specified B group vitamins; E87.6 Hypokalemia; X58.XXXA Exposure to other specified factors, initial encounter; Y93.89 Activity, other specified; Y92.89 Other specified places as the place of occurrence of the external cause; Y99.8 Other external cause status; Z88.1 Allergy status to other antibiotic agents; Z68.21 Body mass index [BMI] 21.0-21.9, adult; Z71.6 Tobacco abuse counseling; Z20.822 Contact with and (suspected) exposure to COVID-19
CPT/HCPCS: 10045; 10078; 10081; 27000; 50010; 50101; 50386; 50403; 50455; 50607; 50649; 51301; 52265; 53326; 54118; 56524; 56525; 56526; 56527; 56528; 57189; 58585; 62110; 62900; 65020; 65040; 65129; 83006; 85076

== ENCOUNTER → 2021-02-13 | Outpatient (CLI) | payer OTHER ==
[~2021-02-13] MED LIST changes: +BUSPIRONE HCL5 MG PO; +FERREX 150 PLU1 EAC1 PO; +FOLIC ACID1 MG PO; +PROAIR HFA8.5 GM INH; +ROCEPHIN 11 GM/1001 IV; +TRAMADOL 50 MG50 MG PO; +[UNRECOGNIZED DRUG - OTHER]
[2021-02-13 09:12] VITALS: BP 129/84
--- NOTE | 2021-02-13 09:16 | NUR ---
HERE FOR FIRST OUTPATIENT INFUSION OF CEFTRIAXONE POST DISMISSAL FROM THE HOSPITAL LATE AFTERNOON YESTERDAY. STATES DOING WELL. DENIES N/V/DIARRHEA, FEVER/CHILLS. STATES SLEPT OK, DENIES PAIN. STATES EATING WELL. WOUND VAC DRESSING IS INTACT, PUMP ON, BUBBLES/FLUID MOVING THROUGH TUBING. PICC DRESSING INTACT, PICC WITH BRISK BLOOD RETURN. CEFTRIAXONE GIVEN WITHOUT INCIDENT. MUCH REASSURANCE GIVEN TO PATIENT WITH REVIEW OF INSTRUCTIONS, SCHEDULE, WHAT TO EXPECT. PT IN GOOD SPIRITS THIS MORNING, PLEASANT, EAGER TO LEARN. DISMISSED IN STABLE CONDITION. SCHEDULED TO RETURN AGAIN IN THE MORNING.
== END ==
LOC: OPONC 12:00
PROVIDERS: ATTEND Specialist
DX: J85.1 Abscess of lung with pneumonia (principal)
CPT/HCPCS: 95000

== ENCOUNTER → 2021-02-14 | Outpatient (CLI) | payer OTHER ==
[2021-02-14 14:29] VITALS: BP 134/83
== END ==
LOC: OPONC 12:00
PROVIDERS: ATTEND Specialist
DX: J85.1 Abscess of lung with pneumonia (principal)
CPT/HCPCS: 95000

== ENCOUNTER → 2021-02-15 | Outpatient (CLI) | payer OTHER ==
[2021-02-15 15:15] VITALS: BP 108/66
--- NOTE | 2021-02-15 17:03 | NUR ---
ARRIVED AMBULATORY FOR ANTIBIOTIC THERAPY AND WOUND VAC DRESSING CHANGE BY DOM FROM 'S OFFICE. PAIN SCALE PRIOR TO WOUND VAC DRESSING CHANGE WAS A "2" THEN INCREASED TO A "7" AFTER IT WAS CHANGED. PRIOR TO DISCHARGE PATIENT RATES PAIN AT A 4. TOLERATED INFUSION WITHOUT DIFFICULTY. TEACHING REVIEWED ON MEDICATION, CARE OF PICC AND PAIN MANAGEMENT. DENIES DIARRHEA, CHILLS OR NAUSEA. DC AMBULATORY IN STABLE CONDITION. TO RETURN TOMORROW FOR NEXT ANTIBIOTIC TREATMENT.
== END ==
LOC: OPONC 12:00
PROVIDERS: ATTEND Specialist
DX: J85.1 Abscess of lung with pneumonia (principal)
CPT/HCPCS: 95000

== ENCOUNTER → 2021-02-16 | Outpatient (CLI) | payer OTHER ==
[2021-02-16 16:56] VITALS: BP 113/75
--- NOTE | 2021-02-16 17:35 | NUR ---
ARRIVED LATE TO CLINIC BECAUSE OF FAMILY EMERGENCY. IV CEFTRIAXONE GIVEN WITHOUT ADVERSE REACTION. WOUND VAC INTACT AND DRAINING. PICC LINE INTACT. DISCHARGE AMBULATORY IN STABLE CONDITION TO HOME
== END ==
LOC: OPONC 12:00
PROVIDERS: ATTEND Specialist
DX: J85.1 Abscess of lung with pneumonia (principal)
CPT/HCPCS: 95000

== ENCOUNTER → 2021-02-17 | Outpatient (CLI) | payer OTHER ==
[2021-02-17 15:41] LABS: HEMATOCRIT 30.9 % (42.0-52.0); HEMOGLOBIN 10.2 gm/dL (14.0-18.0); MCH 29.8 pg (26.0-34.0); MCHC 33.1 g/dL (28.0-37.0); MCV 90.2 fL (80.0-100.0); RBC 3.42 mil/uL (4.50-6.00); RDW 16.4 % (10.5-14.5); WBC 7.7 thou/uL (4.0-11.0)
[2021-02-17 15:53] LABS: ALBUMIN 2.5 g/dL (3.4-5.0); CALCIUM 8.9 mg/dL (8.5-10.1); CREATININE 0.7 mg/dL (0.7-1.3); TOTAL BILIRUBIN 0.4 mg/dL (0.2-1.0); TOTAL PROTEIN 6.8 g/dL (6.4-8.2)
[2021-02-17 15:57] VITALS: BP 111/71
--- NOTE | 2021-02-17 16:02 | NUR ---
ARRIVED AMBULATORY FOR ANTIBIOTIC THERAPY AND WOUND VAC DRESSING CHANGE. PATIENT SEEN BY DOM. DRESSING CHANGE DONE. PATIENT TO GET XRAY TOMORROW. REQUITSITION GIVEN TO PATIENT BY DOM. PATIENT TO BRING BOX OF WOUND VAC SUPPLIES TO OUTPATIENT AREA THAT WERE SENT TO HIS HOUSE. LABS DRAWN TODAY FROM PICC LINE. TOLERATED INFUSION WITHOUT ADVERSE REACTION. DC TO HOME. TO RETURN TOMORROW FOR NEXT TREATMENT.
== END ==
LOC: OPONC 12:00
PROVIDERS: ATTEND Specialist
DX: J85.1 Abscess of lung with pneumonia (principal)
CPT/HCPCS: 95000

== ENCOUNTER → 2021-02-18 | Outpatient (CLI) | payer OTHER ==
[2021-02-18 15:00] VITALS: BP 103/81
--- NOTE | 2021-02-18 15:37 | NUR ---
PT HERE FOR IV CETRIAXONE. STOPPED AT RADIOLOGY BEFORE INFUSION FOR CHEST X-RAY. PT TOLERATED INFUSION WITH NO COMPLICATIONS. INSTRUCTED TO FOLLOW UP WITH TRIM MASTER OPERATOR. ATTEMPTED TO CALL WHILE HERE WITH NO RESPONSE. STATES HE WILL TRY AGAIN WHEN HE GETS HOME. TO RETURN TOMORROW-DRESSING DUE TO BE CHANGED. LEFT IN STABLE CONDITION.
== END ==
LOC: OPONC 14:36
PROVIDERS: ATTEND Specialist
DX: J85.1 Abscess of lung with pneumonia (principal)
CPT/HCPCS: 95000

== ENCOUNTER → 2021-02-19 | Outpatient (CLI) | payer OTHER ==
[2021-02-19 12:15] VITALS: BP 102/81
--- NOTE | 2021-02-19 15:05 | NUR ---
PT HERE FOR IV CEFTRIAXONE. TOLERATED TREATMENT WITH NO COMPLICATIONS. DR. GRIFFIN TO SEE PT IN CLINIC ON MONDAY. PICC DRESSING CHANGED. LINE REMAINS INTACT, FLUSHES AND ASPIRATES EASILY. DOM SAW PT TO DO WOUND VAC DRESSING CHANGE. LEFT MESSAGE WITH PULMONOLOGY ANSWERING SERVICE TO CALL PT FOR HIS FOLLOW UP APPOINTMENT. PT SCHEDULED IN THE ED FOR THE WEEKEND AND STATES HE UNDERSTANDS THE PROCESS. LEFT UNIT IN STABLE CONDITION.
== END ==
LOC: OPONC 12:05
PROVIDERS: ATTEND Specialist
DX: J85.1 Abscess of lung with pneumonia (principal)
CPT/HCPCS: 95000

== ENCOUNTER → 2021-02-20 | Outpatient (CLI) | payer OTHER ==
[2021-02-20 16:05] VITALS: BP 116/71
[2021-02-20 16:23] VITALS: BP 116/71
== END ==
LOC: OPONC 12:00
PROVIDERS: ATTEND Specialist
DX: J85.1 Abscess of lung with pneumonia (principal)
CPT/HCPCS: 95000

== ENCOUNTER → 2021-02-22 | Outpatient (CLI) | payer OTHER ==
[2021-02-22 17:30] VITALS: BP 129/82
--- NOTE | 2021-02-22 17:39 | NUR ---
ARRIVED AMBULATORY TO SEE DOM ARORA AND ANTIBIOTIC TREATMENT. PACING. EMOTIONAL. STATES GOING "THROUGH IT" WOULD NOT ELABORATE. EMOTIONAL SUPPORT GIVEN. TACHYCARDIC AT 133. DENIES NAUSEA, DIARHHEA OR CHILLS. TOLERATED IV INFUSION WITHOUT ADVERSE REACTION. PICC FLUSHED EASILY. PATIENT STATES HE HAS NOT RECEIVED A CALL FROM MUD TRUCKER. SPOKE WITH PACKAGE SEALER MACHINE AUTOMATION TENDER WHO WILL CONTACT OFFICE TO CALL PATIENT FOR APPOINTMENT. DR. GRIFFIN HERE TO ROUND ON PATIENT. PATIENT IMPROVING. WANTS HIM TO FIND PCP TO [facility] AND PATIENT TO GET ON ANTIANXIETY MEDICATIONS. DOM HERE TO DO WOUND VAC DRESSING CHANGE. TOLERATED WELL. PATIENT DC AMBULATORY IN STABLE CONDITION. STATES HE FEELS BETTER AFTER HEARING OF HIS IMPROVEMENT TODAY. WILL CALL PATIENT WITH ANY FURTHER INFORMATION ABOUT MEDS/PCP. TO RETURN TOMORROW FOR NEXT TREATMENT. CALL PLACED TO HOSPITAL LIST, DR. BOURGEOIS REGARDING DISCHARGE MEDS. RILEY FROM CASE MANAGEMENT OFFERED GUIDANCE WHICH WAS COMMUNICATED TO PATIENT. EXPLAINED [facility] [employer] AND INSTRUCTED TO CALL [phone] FOR AN APPOINTMENT FOR A PCP. PT TOLD THIS COULD TAKE UP TO 2 MONTHS TO GET INTO, IN THE MEAN TIME HE IS TO USE THE WALK IN CLINIC FOR IMMEDIATE NEEDS. PATIENT INSTRUCTED THAT HE WILL NEED AND I.D., PROOF OF ADDRESS AND $25.00. PATIENT ALSO INSTRUCTED TO TAKE HIS DISCHARGE PAPERWORK. PT INSTRUCTED OF LOCATION OF [facility] AT [address] [place] [address] WITH HOURS MONDAY -MONDAY [phone]. PATEINT STATES HE UNDERSTANDS BUT TRANSPORTATION WILL BE DIFFICULT AT THIS TIME. WILL REINFORCE TOMORROW AT NEXT VISIT.
== END ==
LOC: OPONC 12:29
PROVIDERS: ATTEND Specialist
DX: J85.1 Abscess of lung with pneumonia (principal)
CPT/HCPCS: 95000

== ENCOUNTER → 2021-02-23 | Outpatient (CLI) | payer OTHER ==
[2021-02-23 14:15] VITALS: BP 139/83
--- NOTE | 2021-02-23 14:50 | NUR ---
HERE FOR DAILY IV CEFTRIAXONE. DENIES PAIN, N/V/DIARRHEA, FEVER/CHILLS. STATES EATING OK. PICC LINE INTACT. TOLERATING INFUSIONS WITHOUT INCIDENT. HAS WOUND VAC TO L CHEST WOUND. LEFT LUNG SOUNDS DIMINISHED. ENCOURAGED PT TO PRACTICE LONG, SLOW DEEP BREATHS. STATES HE IS GETTING PLENTLY OF EXERCISE MOVING AROUND, WALKING, ETC. STATES HE RAN OUT OF GAS TODAY BEFORE HE GOT TO THE HOSPITAL AND HAD TO WALK THE REST OF THE WAY. ASKED IF HE HAD A PLAN FOR GETTING HOME BUT HE WAS STILL WORKING ON THIS. DOES HAVE HIS CELL PHONE TO CONTACT HELP FOR THIS. PATIENT ANXIOUS TODAY, PACING THE ENTIRE VISIT. REMAINS TACHYCARDIC AT 125/MIN. ASKED PT IF HE WAS ABLE TO CALL [facility] TO REQUEST HELP WITH SECURING A PCP OR IF HE WAS ABLE TO MAKE A PLAN TO GO TO THEIR WALK IN CLINIC ONE MORNING THIS WEEK. STATES NOT TODAY. WILL TRY TO TALK WITH PT ABOUT THIS AGAIN TOMORROW, HOPEFULLY HE WILL BE LESS ANXIOUS. DISMISSED IN STABLE CONDIITON.
== END ==
LOC: OPONC 10:02
PROVIDERS: ATTEND Specialist
DX: J85.1 Abscess of lung with pneumonia (principal)
CPT/HCPCS: 95000

== ENCOUNTER → 2021-02-24 | Outpatient (CLI) | payer OTHER ==
[2021-02-24 15:15] VITALS: BP 143/86
[2021-02-24 15:15] LABS: HEMATOCRIT 32.2 % (42.0-52.0); HEMOGLOBIN 10.5 gm/dL (14.0-18.0); MCH 29.8 pg (26.0-34.0); MCHC 32.7 g/dL (28.0-37.0); MCV 91.3 fL (80.0-100.0); RBC 3.52 mil/uL (4.50-6.00); RDW 16.4 % (10.5-14.5); WBC 6.9 thou/uL (4.0-11.0)
[2021-02-24 15:29] LABS: ALBUMIN 2.8 g/dL (3.4-5.0); CALCIUM 8.3 mg/dL (8.5-10.1); CREATININE 1.1 mg/dL (0.7-1.3); POTASSIUM 3.9 mmol/L (3.5-5.1); TOTAL BILIRUBIN 0.4 mg/dL (0.2-1.0); TOTAL PROTEIN 6.7 g/dL (6.4-8.2)
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
== END ==
LOC: OPONC 10:05
PROVIDERS: ATTEND Specialist
DX: J85.1 Abscess of lung with pneumonia (principal)
CPT/HCPCS: 95000

== ENCOUNTER → 2021-02-25 | Outpatient (CLI) | payer OTHER ==
[2021-02-25 15:10] VITALS: BP 122/84
--- NOTE | 2021-02-25 15:43 | NUR ---
HERE FOR DAILY IV CEFTRIAXONE INFUSION. REPORTS DOING WELL, FEELING BETTER EACH DAY, BREATHING WELL. DENIES N/V/DIARRHEA, FEVER/CHILLS, PAIN. WOUND VAC FUNCTIONING WITH DRAINAGE NOTED FLUCTUATING IN TUBE. CANNISTER CHANGED TODAY SINCE IT APPEARED 1/2 FULL OF CRYSTALLYZED PINKISH COLORED FLUID. 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 STATES HE WAS SUPPOSED TO HEAR TODAY. PT ALSO REPORTS THAT HE WAS ABLE TO PICK HIS CAR UP AND HE DID DRIVE TO THE APPT TODAY (BUT WAS AN HOUR LATE D/T LOGISTICS). ASKED PT TO PLEASE COME ON TIME TOMORROW SO HE CAN CATCH BOTH QUIQUE FERNANDES, AND DR. GRIFFIN. TOLERATED INFUSION WITHOUT INCIDENT. REMAINS TACHYCARDIC. DISMISSED IN STABLE CONDITION. TO RETURN TOMORROW AT 1400.
== END ==
LOC: OPONC 10:08
PROVIDERS: ATTEND Specialist
DX: J85.1 Abscess of lung with pneumonia (principal)
CPT/HCPCS: 95000

== ENCOUNTER → 2021-02-26 | Outpatient (CLI) | payer OTHER ==
[2021-02-26 14:25] VITALS: BP 126/82
--- NOTE | 2021-02-26 15:45 | NUR ---
HERE FOR DAILY IV CEFTRIAXONE INFUSION. QUIQUE FERNANDES WITH DR. ROBINS ROUNDED, CHANGED WOUND VAC DRESSING AND SPOKE AT LENGTH WITH PT ENCOURAGING A STRAIGHT PATH. DR. GRIFFIN ROUNDED WITH PLANS TO CONTINUE FOR ONE MORE WEEK AND HOPES TO GET A CT CHEST SCHEDULED FOR NEXT WEEK. PT REPORTS DOING WELL, FEELING WELL. DENIES N/V/DIARRHEA, FEVER/CHILLS. HEART RATE DOWN SLIGHTLY, BEST IT'S BEEN IN 2 WEEKS. PICC SITE LOOKS GOOD. WOUND VAC INTACT. PT VERBALIZES UNDERSTANDING OF TREATMENT PLAN. SENT TO DR. BISWAS'S OFFICE POST VISIT HERE TO TRY TO GET A HOSPITAL F/U APPT SET. PT STATES HE HAS LEFT PHONE MESSAGES. PT STATES HE PLANS TO GO MONDAY MORNING TO [facility] TO GET THE PROCESS STARTED TO SECURE A PCP. DISMISSED IN STABLE CONDITION WITH PLAN TO RETURN TOMORROW MORNING FOR INFUSION.
--- NOTE | 2021-02-27 17:47 | HC ---
[facility] [place] [address] CONSULTATION Name: JUMA MOE Room #: PRE [facility] M.Jennifer.#: [id number] Admission: Attend Phys: Ra Petit MD Discharge: Date of : 89 Report #: [id number] THIS REPORT FOR: cc: FAM - No family physician/PCP FAM - No family physician/PCP Ra Petit MD ~ DATE OF SERVICE: 02/26/2021 FOLLOWUP INFECTIOUS DISEASE CONSULTATION, OUTPATIENT INFECTIOUS DISEASE NOTE HISTORY OF PRESENT ILLNESS: The patient remains on ceftriaxone, is postoperative day ____ left thoracotomy and drainage of lung abscess, culture negative with strep pneumonia antigen from the urine was positive. He has done well on ceftriaxone. He has a left upper extremity PICC, which is functioning well. He has a wound VAC to his left posterior chest, which is granulating nicely. Overall, feels well with no fever, chills or sweats. No other change in examination from last week. Laboratory studies were reviewed. His sedimentation rate remains at 90. DIAGNOSES: 1. Extensive left lung pneumonia with necrosis and cavitation as well as right lower lobe infiltrate, suspect due to Streptococcus pneumoniae. 2. Iron deficiency anemia and low folate level secondary to malnutrition. 3. Persistent tachycardia. He reports being off ____. He feels it is related to his anxiety. He is yet to follow up with the primary care physician. PLAN: 1. We will continue his IV antibiotic therapy through next week. Continue local wound care to his left chest. The patient will need a followup CT scan before switching over to enteral therapy to ensure no evidence of residual abscess of any significance. 2. Discontinue tobacco use. 3. Discontinue any potential stimulants. 4. We will reevaluate after CT scan next week. <ELECTRONICALLY SIGNED> By: Ra Petit MD 02/27/21 [id number] Ra Petit MD /nt
== END ==
LOC: OPONC 08:32
PROVIDERS: ATTEND Specialist
DX: J85.1 Abscess of lung with pneumonia (principal)
CPT/HCPCS: 95000

== ENCOUNTER → 2021-03-01 | Outpatient (CLI) | payer OTHER ==
[~2021-03-01] MED LIST changes: +CEPHALEXIN500 MG PO
[2021-03-01 14:20] VITALS: BP 120/76
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
== END ==
LOC: OPONC 15:12
PROVIDERS: ATTEND Specialist
DX: J85.1 Abscess of lung with pneumonia (principal)
CPT/HCPCS: 95000

== ENCOUNTER → 2021-03-02 | Outpatient (CLI) | payer OTHER ==
[2021-03-02 15:11] VITALS: BP 119/64
--- NOTE | 2021-03-02 15:48 | NUR ---
HERE , SUMMER, FOR CEFTRIAXONE INFUSION. STATES HE IS FEELING WELL AND DENIES PAIN. DENIES N/V WERNER/CHILLS. WOUND VAC IN PLACE AND SUCTIONING. PICC LINE FLUSHES EASILY WITH GOOD BLODD RETURN. TOLERATED INFUSION WITHOUT ADVERSE REACTION. GIVEN PAPER WITH TIME AND PLACE TO SHOW UP FOR CT ON 03/03/21. PT VERBALIZED THAT HE WOULD BE AT REGISTRATION AT 1230 ON 03/03. TODAY PATIENT AND ARE DRIVING THEIR CAR THAT ONLY HAS "A LITTLE GAS." REQUESTED GAS CARD. SPOKE WITH PAIGE IN CASE MANAGEMENT. ONLY CAB VOUCHERS ARE AVAILBALE FOR PATIENT WHICH ARE OBTAINED FROM SECURITY. ED (IN SECURITY) AND PAIGE (CASE MANAGEMENT) OKAYED PATIENT'S CAB VOUCHER FOR USE OVER THE WEEKEND ( WHICH IS WHEN THE PATIENT REQUESTED THE VOUCHERS FOR HE HAS A HARD TIME FINDING RIDES ON THE WEEKEND). DC AMBULATORY IN STABLE CONDITIN WITH . WILL RETURN TOMORROW FOR CT AND THEN TO INFUSION FOR ANTIBIOTIC AND WOUND VAC DRESSING CHANGE. PATIENT HR 98 TODAY.
== END ==
LOC: OPONC 15:48
PROVIDERS: ATTEND Specialist
DX: J85.1 Abscess of lung with pneumonia (principal)
CPT/HCPCS: 95000

== ENCOUNTER → 2021-03-03 | Outpatient (CLI) | payer OTHER ==
[2021-03-03 14:10] VITALS: BP 108/72
--- NOTE | 2021-03-03 14:10 | NUR ---
HERE FOR DAILY IV CEFTRIAXONE INFUSION. PICC SITE LOOKS GOOD. PT REPORTS FEELING FINE. DENIES N/V/DIARRHEA, DYPSNEA, FEVER/CHILLS. WOUND VAC FUNCTIONING. KINDRA WITH WOUND CARE TEAM DID DRESSING CHANGE TODAY. PT GOT HIS CT OF CHEST DONE TODAY PRIOR TO ARRIVAL. STATES DROVE HIMSELF TO HIS APPT TODAY. STILL STAYING [facility] FRIENDS, NO HOME AT THIS TIME. LABS DRAWN. TOLERATED INFUSION WITHOUT INCIDENT. DISMISSED IN STABLE CONDITION. SCHEDULED TO RETURN AGAIN TOMORROW.
[2021-03-03 14:13] LABS: HEMATOCRIT 31.6 % (42.0-52.0); HEMOGLOBIN 10.4 gm/dL (14.0-18.0); MCH 29.9 pg (26.0-34.0); MCV 90.5 fL (80.0-100.0); RBC 3.48 mil/uL (4.50-6.00); RDW 16.2 % (10.5-14.5); WBC 4.3 thou/uL (4.0-11.0)
[2021-03-03 14:25] LABS: ALBUMIN 2.9 g/dL (3.4-5.0); CREATININE 0.9 mg/dL (0.7-1.3); POTASSIUM 3.4 mmol/L (3.5-5.1); TOTAL BILIRUBIN 0.4 mg/dL (0.2-1.0); TOTAL PROTEIN 6.3 g/dL (6.4-8.2)
--- NOTE | 2021-03-03 15:13 | NUR ---
WOUND CARE F/U; DOM LEI ASKED ME TO F/U WITH THIS PATIENT IN THE OUTPATIENT CLINIC FOR A VAC CHANGE. THIS SERVICE WAS APPROVED BY [facility]. THE WOUND TO THE LEFT SIDE OR THE RIBCAGE POSTERIORLY FROM A CHESST TUBE. THE WOUND IS APPROX 5 X 1 X 1 PALE RED WOUND BED. NON ODOROUS. THE PATIENT IS HOMELESS INTERMITTENTLY. THE PATIENT SEEMS MALNOURISHED. REMOVED THE VAC. CLEANSED AND MEASURED THE WOUND. THE WOUND VAC PRESSURE IS STABLE W/O ALARMS.
== END ==
LOC: OPONC 15:18
PROVIDERS: ATTEND Specialist
DX: J85.1 Abscess of lung with pneumonia (principal)
CPT/HCPCS: 95000

== ENCOUNTER → 2021-03-03 | Outpatient (CLI) | payer OTHER | LOC: CAT 11:36 | PROVIDERS: ATTEND Specialist | DX: J98.4 Other disorders of lung (principal); J90 Pleural effusion, not elsewhere classified; J85.2 Abscess of lung without pneumonia; J85.0 Gangrene and necrosis of lung ==

== ENCOUNTER → 2021-03-04 | Outpatient (CLI) | payer OTHER ==
[2021-03-04 15:20] VITALS: BP 120/74
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
== END ==
LOC: OPONC 16:19
PROVIDERS: ATTEND Specialist
DX: J85.1 Abscess of lung with pneumonia (principal)
CPT/HCPCS: 95000

== ENCOUNTER → 2021-03-05 | Outpatient (CLI) | payer OTHER ==
[2021-03-05 15:00] VITALS: BP 122/74
--- NOTE | 2021-03-05 16:29 | NUR ---
IN FOR DAILY IV CETRIAXONE INFUSION, WOUND CARE, AND TO SEE BOTH DR. GRIFFIN AND QUIQUE FERNANDES WITH DR. BISWAS. DOM ROUNDED 1ST, REMOVED WOUND VAC AND REQUESTED THAT PT BE ALLOWED TO SHOWER. ASSISTED PT TO A SHOWER WHERE HE WAS ABLE TO COMPLETE SHOWER INDEPENDENTLY ALLOWING CLEANSING OF LEFT THORACTOMY WOUND PER DOM'S REQUEST. UPON RETURN TO THE CLINIC, DOM DRESSED WOUND USING CO-ACTIVE PLUS AG STRIPS CUT TO FIT INTO THE WOUND BED AND TOPPED WITH A MEPILEX BORDER AG DRESSING. VIDEO USING PT'S CELL PHONE TAKEN SO HE CAN FOLLOW SAME PLAN AT HOME WITH ASSIST OF HIS . PT INSTRUCTED TO REMOVE DRESSING DAILY, SHOWER, APPLY LAMISIL OINTMENT TO THE SKIN SURROUNDING WOUND (D/T SIGNS OF SLIGHT FUNGAL RASH), ALLOW TO DRY THEN REPEAT APPLICATION OF DRESSING JUST LIKE SHOWN IN THE VIDEO. PT VERBALIZED UNDERSTANDING. DOM SUPPLIED PT WITH 3 DAY SUPPLY OF DRESSINGS. PT IS TO CALL DOM WITH ANY PROBLEMS AND CONTACT HIM ON MONDAY WITH CONTINUED PLAN FOR WOUND MANAGEMENT. DR. GRIFFIN SAW PT AND DISCONTINUED ROCEPHIN INFUSIONS, ORDERED ORAL CEPHALEXIN AND REMOVAL OF PICC LINE. PT'S LAST DOSE OF ROCEPHIN GIVEN TODAY, PICC PULLED WITHOUT DIFFICULTY. PT INSTRUCTED TO REMOVE PICC SITE DRESSING TOMORROW AND BEGIN ORAL CEPHALEXIN TOMORROW. SCHEDULED TO RETURN HERE ON 03/19 TO F/U WITH DR. GRIFFIN. PAIGE SHELLEY, GIS PROFESSOR, VOUCHED FOR COST OF CEPHALEXIN AND LAMISIL CREAM. BOTH FILLED BY OUR OUTPATIENT PHARMACY AND PT WALKED DOWN TO THE PHARMACY BY NURSING STAFF TO FACILITATE PICKING THIS UP PRIOR TO DISMISSAL. ONLY THING WE HAVE NOT BEEN ABLE TO ACCOMPLISH AT THIS POINT IN TIME IS GETTING PT IN TO SEE DR. BISWAS. CALLED OFFICE AGAIN TODAY AND WAS TOLD THEY WOULD BE IN THE OFFICE UNTIL 163O. WALKED WITH PT TO THE OFFICE AT 1615 TO SEE IF HE COULD GET THAT APPT SET UP BUT OFFICE WAS CLOSED. I CALLED THE ANSWERING SERVICE AND LEFT A MESSAGE FOR THE OFFICE TO PLEASE CALL ME ON MONDAY TO SEE ABOUT GETTING THAT APPT ARRANGED. PT DISMISSED IN STABLE CONDITION.
== END ==
LOC: OPONC 13:49
PROVIDERS: ATTEND Specialist
DX: J85.1 Abscess of lung with pneumonia (principal)
CPT/HCPCS: 95000